=== PATIENT | female | born 1965 | race Caucasian/White ===

== ENCOUNTER 2018-04-17 17:25 | Emergency (ER) | payer MEDICARE, MEDICAID ==
[~2018-04-17] VITALS: Ht 160 cm; Wt 120.0 kg
[~2018-04-17 17:25] MED LIST: CLON-528 PO; DOXE50CA4 PO; FERR325T28 PO; LAMO100T89 PO; MIRT15TA PO; PANT-47 PO; SIMV20TA5 PO
[2018-04-17 17:29] VITALS: BP 167/88
--- NOTE | 2018-04-17 19:25 | NUR ---
NO RESPONSE FROM LOBBY AFTER 3 ATTEMPTS TO ROOM. CALL PLACED TO NUMBER ON FILE. MESSAGE LEFT EXPRESSING CONCERN FOR PATIENT WELL BEING AND TO ENCOURAGE HER TO RETURN FOR EVAL. DR. CARL INFORMED.
== END 2018-04-17 19:27 | disposition left against medical advice (07) ==
LOC: ER 17:26
DX: I10 Essential (primary) hypertension (principal); R07.89 Other chest pain; Z53.21 Procedure and treatment not carried out due to patient leaving prior to being seen by health care provider
CPT/HCPCS: 93005

== ENCOUNTER 2018-05-29 08:49 | Emergency (ER) | payer MEDICARE, MEDICAID ==
[~2018-05-29] VITALS: Ht 160 cm; Wt 119.8 kg
[2018-05-29 09:00] VITALS: BP 194/101
[2018-05-29] MEDS ORDERED: TRAM50TA2 PO (09:08)
[2018-05-29] MEDS ORDERED: ketorolac trometh inj. 60 MG/2 ML VIAL IM ONE (09:10)
== END 2018-05-29 09:36 | disposition home or self-care (01) ==
LOC: ER 08:50
DX: S20.212A Contusion of left front wall of thorax, initial encounter (principal); E78.00 Pure hypercholesterolemia, unspecified; I10 Essential (primary) hypertension; G89.29 Other chronic pain; Z95.5 Presence of coronary angioplasty implant and graft; Z90.49 Acquired absence of other specified parts of digestive tract; Z98.84 Bariatric surgery status; Z88.0 Allergy status to penicillin; Z88.6 Allergy status to analgesic agent; Z79.899 Other long term (current) drug therapy; W01.198A Fall on same level from slipping, tripping and stumbling with subsequent striking against other object, initial encounter; Y93.89 Activity, other specified; Y92.89 Other specified places as the place of occurrence of the external cause; Y99.9 Unspecified external cause status
CPT/HCPCS: 96372; 99283; J1885

== ENCOUNTER 2019-01-29 10:59 | Emergency (ER) | payer MEDICARE, MEDICAID ==
[~2019-01-29] VITALS: Ht 160 cm; Wt 119.0 kg
[~2019-01-29 10:59] MED LIST changes: +LAMO100T PO; -LAMO100T89 PO; +SIMV-42 PO; -SIMV20TA5 PO
[2019-01-29] MEDS ORDERED: nitroGLYCERIN 0.4mg SUBLingual tab SL PRN (11:20)
[2019-01-29 11:52] LABS: BASOPHILS % (AUTO) 0.5 % (0-1); EOSINOPHILS % (AUTO) 0 % (0-6); HEMATOCRIT 37.1 % (35.0-45.0); HEMOGLOBIN 12.7 g/dl (12.0-16.0); LYMPHOCYTES # (AUTO) 1.4 X10'3 (1.1-4.8); LYMPHOCYTES % (AUTO) 24.6 % (21-51); MEAN CORPUSCULAR HEMOGLOBIN 32.9 PG (27.0-31.0); MEAN CORPUSCULAR HGB CONC 34.1 g/dL (33.0-36.5); MEAN CORPUSCULAR VOLUME 96.6 FL (78-98); MEAN PLATELET VOLUME 7.5 FL (7.4-10.4); MONOCYTES # (AUTO) 0.5 X10'3 (0-0.9); MONOCYTES % (AUTO) 7.9 % (2-12); NEUTROPHILS # (AUTO) 3.9 X10'3 (1.8-7.7); PLATELET COUNT 205 X10'3 (140-440); RED BLOOD COUNT 3.84 X10'6 (4.20-5.60); RED CELL DISTRIBUTION WIDTH 13.4 % (11.5-14.5); WHITE BLOOD COUNT 5.8 X10'3 (4.5-11.0)
[2019-01-29 12:03] LABS: ALANINE AMINOTRANSFERASE 117 U/L (12-78); ALBUMIN 3.4 G/DL (3.4-5.0); ALBUMIN/GLOBULIN RATIO 1.2 (1.1-1.5); ALKALINE PHOSPHATASE 174 IU/L (46-116); ANION GAP 9 (8-16); ASPARTATE AMINO TRANSFERASE 155 U/L (10-37); BILIRUBIN,TOTAL 0.3 MG/DL (0.1-1.0); BLOOD UREA NITROGEN 9 MG/DL (7-18); BUN/CREATININE RATIO 11.7 (6.6-38.0); CALCIUM 8.9 MG/DL (8.5-10.1); CHLORIDE 103 MMOL/L (99-107); CREATININE 0.77 MG/DL (0.40-0.90); GLUCOSE 123 MG/DL (70-104); POTASSIUM 4.3 MMOL/L (3.5-5.1); SODIUM 139 MMOL/L (135-145); TOTAL PROTEIN 6.3 G/DL (6.4-8.2); eGFR 78 ML/MIN
[2019-01-29 14:23] VITALS: BP 169/94
== END 2019-01-29 14:25 | disposition home or self-care (01) ==
LOC: ER 11:00
DX: R07.89 Other chest pain (principal); E66.01 Morbid (severe) obesity due to excess calories; I25.10 Atherosclerotic heart disease of native coronary artery without angina pectoris; E78.00 Pure hypercholesterolemia, unspecified; I10 Essential (primary) hypertension; G89.29 Other chronic pain; Z95.5 Presence of coronary angioplasty implant and graft; Z90.49 Acquired absence of other specified parts of digestive tract; Z98.890 Other specified postprocedural states; Z98.84 Bariatric surgery status; Z88.0 Allergy status to penicillin; Z88.6 Allergy status to analgesic agent; Z79.899 Other long term (current) drug therapy
CPT/HCPCS: 36415; 71045; 80053; 83880; 84484; 85025; 85610; 93005; 99284

== ENCOUNTER 2020-09-28 14:18 | Emergency (ER) | payer MEDICARE, MEDICAID ==
[~2020-09-28 14:18] MED LIST changes: -CLON-528 PO; -DOXE50CA4 PO; -FERR325T28 PO; +FLUO40CA PO; +GABA300C PO; +LEVO500T89 PO; -MIRT15TA PO; +NALT50TA PO; +TRAZ-251 PO
== END 2020-09-28 14:57 | disposition left against medical advice (07) ==
LOC: ER 14:18
DX: F41.9 Anxiety disorder, unspecified (principal); Z53.21 Procedure and treatment not carried out due to patient leaving prior to being seen by health care provider

== ENCOUNTER 2020-10-02 14:38 | Emergency (ER) | payer MEDICARE, MEDICAID ==
[~2020-10-02] VITALS: Ht 160 cm; Wt 122.0 kg
[2020-10-02 15:21] LABS: BASOPHILS % (AUTO) 0.4 % (0-1); EOSINOPHILS # (AUTO) 0.1 X10'3 (0-0.9); HEMATOCRIT 45.1 % (35.0-45.0); HEMOGLOBIN 14.1 g/dl (12.0-16.0); LYMPHOCYTES # (AUTO) 1.7 X10'3 (1.1-4.8); LYMPHOCYTES % (AUTO) 22.7 % (21-51); MEAN CORPUSCULAR HEMOGLOBIN 29.9 PG (27.0-31.0); MEAN CORPUSCULAR HGB CONC 31.2 g/dL (33.0-36.5); MEAN CORPUSCULAR VOLUME 95.8 FL (78-98); MONOCYTES # (AUTO) 0.6 X10'3 (0-0.9); MONOCYTES % (AUTO) 7.2 % (2-12); NEUTROPHILS # (AUTO) 5.3 X10'3 (1.8-7.7); NEUTROPHILS % (AUTO) 68.7 % (42-75); PLATELET COUNT 341 X10'3 (140-440); RED BLOOD COUNT 4.71 X10'6 (4.20-5.60); RED CELL DISTRIBUTION WIDTH 14.7 % (11.5-14.5); WHITE BLOOD COUNT 7.7 X10'3 (4.5-11.0)
[2020-10-02 15:42] LABS: ALANINE AMINOTRANSFERASE 45 U/L (12-78); ALBUMIN/GLOBULIN RATIO 1.2 (1.1-1.5); ALKALINE PHOSPHATASE 194 IU/L (46-116); ANION GAP 10 (8-16); ASPARTATE AMINO TRANSFERASE 32 U/L (10-37); BILIRUBIN,TOTAL 0.3 MG/DL (0.1-1.0); BLOOD UREA NITROGEN 13 MG/DL (7-18); BUN/CREATININE RATIO 16.5 (6.6-38.0); CALCIUM 9.5 MG/DL (8.5-10.1); CHLORIDE 103 MMOL/L (99-107); CREATININE 0.79 MG/DL (0.40-0.90); GLUCOSE 144 MG/DL (70-104); POTASSIUM 4.3 MMOL/L (3.5-5.1); SODIUM 138 MMOL/L (135-145); TOTAL CARBON DIOXIDE 25.2 MMOL/L (24-32); TOTAL PROTEIN 7.3 G/DL (6.4-8.2); eGFR 75 ML/MIN
[2020-10-02] MEDS ORDERED: diazepam inj 5 MG/ML inj. IM ONE (20:25)
[2020-10-02] MEDS ORDERED: oxyCODONE/APAP 5-325mg tablet PO ONE (21:15)
[2020-10-02] MEDS ORDERED: ketorolac trometh. 30mg/ml inj. IM ONE (21:15)
[2020-10-02 21:47] LABS: CREATINE KINASE 50 U/L (26-192)
[2020-10-02] MEDS ORDERED: morphine 10mg/ml inj. IM ONE (22:10)
[2020-10-02] MEDS ORDERED: GABA-530 PO (22:28)
--- NOTE | 2020-10-02 22:51 | NUR ---
pt states felt nauseous after valium and morphine has made nausea a little worse.
--- NOTE | 2020-10-02 22:55 | NUR ---
pt walked 3 steps from bed before right leg cramping began. pt states left leg hurt as well but not as bad.
[2020-10-02] MEDS ORDERED: magnesium oxide 400mg tablet PO ONE (23:00)
[2020-10-02 23:31] LABS: C-REACTIVE PROTEIN 1.62 MG/DL (0.0-0.5); MAGNESIUM 2.1 MG/DL (1.5-2.4)
[2020-10-03 00:12] LABS: CLARITY,URINE CLEAR (Clear); COLOR,URINE YELLOW (Yellow); GLUCOSE, URINE NEGATIVE (Neg); KETONES,URINE NEGATIVE (Neg); LEUKOCYTE ESTERASE ,URINE NEGATIVE (Neg); NITRITES, URINE NEGATIVE (Neg); OCCULT BLOOD,URINE NEGATIVE (Neg); PROTEIN,URINE NEGATIVE (Neg); UROBILINOGEN,URINE 0.2 E.U/dL (0.2-1.0)
[2020-10-03 00:14] LABS: UA COLLECTION TYPE URINAL
[2020-10-03 00:26] LABS: URINE AMPHETAMINE SCREEN NEGATIVE (Neg); URINE BARBITUATE SCREEN NEGATIVE (Neg); URINE BENZODIAZEPINES SCREEN NEGATIVE (Neg); URINE CANNABINOID SCREEN NEGATIVE (Neg); URINE COCAINE SCREEN NEGATIVE (Neg); URINE METHADONE SCREEN NEGATIVE (Neg); URINE OPIATE SCREEN POSITIVE (Neg); URINE PHENCYCLIDINE SCREEN NEGATIVE (Neg)
--- NOTE | 2020-10-03 05:33 | NUR ---
pt resting on right side watching [employer]. states pain went away but spasms in right leg came back. states right leg worse than left. states 9/10 pain currently. md seals aware.
[2020-10-03] MEDS ORDERED: thiamine 100mg tablet PO ONE (06:50)
[2020-10-03] MEDS ORDERED: folic acid 1mg tablet PO ONE (06:50)
[2020-10-03 07:11] VITALS: BP 145/73
== END 2020-10-03 07:40 | disposition home or self-care (01) ==
LOC: ER 14:38
DX: R55 Syncope and collapse (principal); R00.1 Bradycardia, unspecified; R26.89 Other abnormalities of gait and mobility; M79.605 Pain in left leg; M79.604 Pain in right leg; I10 Essential (primary) hypertension; E66.01 Morbid (severe) obesity due to excess calories; Z68.42 Body mass index [BMI] 45.0-49.9, adult
CPT/HCPCS: 36415; 73564; 80053; 80305; 81003; 82550; 83735; 85025; 85651; 86140; 93970; 96372; 99285; J1885; J2270; J3360

== ENCOUNTER 2021-07-27 04:22 | Inpatient (IN) | payer MEDICARE, MEDICAID ==
[~2021-07-27] VITALS: Ht 162.6 cm; Wt 120.5 kg
[~2021-07-27 04:22] MED LIST changes: +GABA-530 PO; -LEVO500T89 PO; +LEVO500T90 PO
[2021-07-27] MEDS ORDERED: naproxen 500mg tablet PO ONE (05:45)
[2021-07-27] MEDS ORDERED: HYDROcodone/acetaminophen 10/325mg tab PO ONE (05:45)
[2021-07-27] MEDS ORDERED: morphine 4 MG/ML inj SYRINge IV ONE (05:50)
[2021-07-27 06:47] LABS: BASOPHILS # (AUTO) 0.1 X10'3 (0-0.2); BASOPHILS % (AUTO) 0.6 % (0-1); EOSINOPHILS % (AUTO) 0.1 % (0-6); HEMATOCRIT 36.5 % (35.0-45.0); HEMOGLOBIN 12.2 g/dl (12.0-16.0); LYMPHOCYTES # (AUTO) 2.2 X10'3 (1.1-4.8); LYMPHOCYTES % (AUTO) 22.7 % (21-51); MEAN CORPUSCULAR HEMOGLOBIN 30.2 PG (27.0-31.0); MEAN CORPUSCULAR HGB CONC 33.5 g/dL (33.0-36.5); MEAN CORPUSCULAR VOLUME 90.3 FL (78-98); MEAN PLATELET VOLUME 7.6 FL (7.4-10.4); MONOCYTES # (AUTO) 0.7 X10'3 (0-0.9); MONOCYTES % (AUTO) 7.6 % (2-12); NEUTROPHILS # (AUTO) 6.6 X10'3 (1.8-7.7); PLATELET COUNT 402 X10'3 (140-440); RED BLOOD COUNT 4.04 X10'6 (4.20-5.60); RED CELL DISTRIBUTION WIDTH 14.7 % (11.5-14.5); WHITE BLOOD COUNT 9.6 X10'3 (4.5-11.0)
[2021-07-27 06:57] LABS: APTT 22 SECONDS (22-32)
[2021-07-27 07:02] LABS: ALANINE AMINOTRANSFERASE 25 U/L (12-78); ALBUMIN 3.8 G/DL (3.4-5.0); ALBUMIN/GLOBULIN RATIO 1.2 (1.1-1.5); ALKALINE PHOSPHATASE 192 IU/L (46-116); ANION GAP 15 (8-16); ASPARTATE AMINO TRANSFERASE 23 U/L (10-37); BILIRUBIN,TOTAL 0.3 MG/DL (0.1-1.0); BLOOD UREA NITROGEN 8 MG/DL (7-18); BUN/CREATININE RATIO 11.4 (6.6-38.0); CHLORIDE 104 MMOL/L (99-107); GLUCOSE 124 MG/DL (70-104); POTASSIUM 4.2 MMOL/L (3.5-5.1); SODIUM 139 MMOL/L (135-145); TOTAL CARBON DIOXIDE 20.5 MMOL/L (24-32); TOTAL PROTEIN 6.9 G/DL (6.4-8.2); eGFR 86 ML/MIN
[2021-07-27 07:10] LABS: ETHANOL 0.047 GM/DL (0.0-0.010); LIPASE 57 U/L (73-393); MAGNESIUM 2.1 MG/DL (1.5-2.4)
[2021-07-27] MEDS ORDERED: acetaminophen 325mg tablet PO PRN (07:45)
[2021-07-27] MEDS ORDERED: magnesium hydroxide 30ml (MOM) UD suspension PO PRN (07:45)
[2021-07-27] MEDS ORDERED: HYDROcodone/acetaminophen 5mg/325mg tablet PO PRN (07:45)
[2021-07-27] MEDS ORDERED: fentaNYL/PF 50MCG/1 ML 2ML syringe IV ONE (07:45)
[2021-07-27] MEDS ORDERED: morphine 2 MG/ML inj. syringe IV PRN ×2 (07:45)
[2021-07-27] MEDS ORDERED: ondansetron/PF 4mg/2ml inj IV ONE (07:45)
[2021-07-27] MEDS ORDERED: ondansetron/PF 4mg/2ml inj IV PRN (07:45)
[2021-07-27] MEDS ORDERED: mag hydrox/Alum hydrox/simeth 30ml oral suspension PO PRN (07:45)
[2021-07-27] MEDS: docusate sod 100mg capsule PO SCH ×2 (08:00→20:54)
[2021-07-27] MEDS: dextrose 5%-1/2 normal saline 1,000 ML IV SCH ×3 (08:06→23:53)
[2021-07-27 08:40] LABS: CLARITY,URINE CLOUDY (Clear); COLOR,URINE YELLOW (Yellow); GLUCOSE, URINE NEGATIVE (Neg); KETONES,URINE NEGATIVE (Neg); LEUKOCYTE ESTERASE ,URINE NEGATIVE (Neg); NITRITES, URINE NEGATIVE (Neg); OCCULT BLOOD,URINE NEGATIVE (Neg); PROTEIN,URINE NEGATIVE (Neg); UROBILINOGEN,URINE 0.2 E.U/dL (0.2-1.0)
[2021-07-27 08:41] LABS: UA COLLECTION TYPE CLN CATCH MIDSTREAM
[2021-07-27 08:46] LABS: HYALINE CASTS 0-3 /LPF (NEGATIVE); SQUAMOUS EPITHELIAL CELL,UR FEW /LPF (FEW)
[2021-07-27 08:47] LABS: BACTERIA,URINE 3+ /HPF (Neg); RBC,URINE 0-2 /HPF (0-2); WBC,URINE 0-4 /HPF (0-4)
[2021-07-27] MEDS: HYDROmorphone inj. 0.5 MG/0.5 ML DISP.SYRIN IV PRN ×5 (13:23→23:53)
[2021-07-27 13:29] VITALS: BP 139/51
[2021-07-27] MEDS ORDERED: ATEN50TA2 PO (13:39)
[2021-07-27] MEDS ORDERED: TOPI50TA24 PO (13:39)
[2021-07-27 18:00] VITALS: BP 157/60
[2021-07-27 18:24] VITALS: BP 170/78
[2021-07-27 22:00] VITALS: BP 134/43
[2021-07-28 06:00] VITALS: BP 163/76
--- NOTE | 2021-07-28 06:32 | NUR ---
Problems reprioritized. Patient report given, questions answered & plan of care reviewed with CLARE HENRY.
--- NOTE | 2021-07-28 06:52 | NUR ---
Patient in room ORTHO 4009C. I have received report from CARL VELASQUEZ and had the opportunity to ask questions and assume patient care.
[2021-07-28] MEDS: HYDROcodone/acetaminophen 10/325mg tab PO PRN (07:25)
[2021-07-28 07:40] LABS: BASOPHILS % (AUTO) 0.7 % (0-1); EOSINOPHILS % (AUTO) 0.6 % (0-6); HEMATOCRIT 35.2 % (35.0-45.0); HEMOGLOBIN 11.3 g/dl (12.0-16.0); LYMPHOCYTES # (AUTO) 1.6 X10'3 (1.1-4.8); LYMPHOCYTES % (AUTO) 25.3 % (21-51); MEAN CORPUSCULAR HEMOGLOBIN 29.4 PG (27.0-31.0); MEAN CORPUSCULAR HGB CONC 32.2 g/dL (33.0-36.5); MEAN CORPUSCULAR VOLUME 91.4 FL (78-98); MEAN PLATELET VOLUME 7.5 FL (7.4-10.4); MONOCYTES # (AUTO) 0.6 X10'3 (0-0.9); MONOCYTES % (AUTO) 10.1 % (2-12); NEUTROPHILS # (AUTO) 3.9 X10'3 (1.8-7.7); NEUTROPHILS % (AUTO) 63.3 % (42-75); PLATELET COUNT 266 X10'3 (140-440); RED BLOOD COUNT 3.85 X10'6 (4.20-5.60); RED CELL DISTRIBUTION WIDTH 14.9 % (11.5-14.5); WHITE BLOOD COUNT 6.2 X10'3 (4.5-11.0)
[2021-07-28 07:43] LABS: ANION GAP 10 (8-16); BLOOD UREA NITROGEN 7 MG/DL (7-18); BUN/CREATININE RATIO 11.3 (6.6-38.0); CALCIUM 8.6 MG/DL (8.5-10.1); CHLORIDE 105 MMOL/L (99-107); CREATININE 0.62 MG/DL (0.40-0.90); GLUCOSE 126 MG/DL (70-104); POTASSIUM 3.8 MMOL/L (3.5-5.1); SODIUM 140 MMOL/L (135-145); eGFR > 90 ML/MIN
[2021-07-28] MEDS: multivitamins, therapeutics tablet PO SCH (08:00)
[2021-07-28] MEDS: docusate sod 100mg capsule PO SCH ×2 (08:00→19:54)
[2021-07-28 10:00] VITALS: BP 152/59
[2021-07-28] MEDS: HYDROmorphone inj. 0.5 MG/0.5 ML DISP.SYRIN IV PRN ×4 (11:13→19:54)
[2021-07-28 14:00] VITALS: BP 157/68
[2021-07-28] MEDS: dextrose 5%-1/2 normal saline 1,000 ML IV SCH ×2 (14:34→23:21)
[2021-07-28 18:00] VITALS: BP 169/78
--- NOTE | 2021-07-28 18:56 | NUR ---
Patient in room ORTHO 4009. I have received report from CLARE HENRY and had the opportunity to ask questions and assume patient care.
--- NOTE | 2021-07-28 19:42 | NUR ---
Problems reprioritized. Patient report given, questions answered & plan of care reviewed with CARL VELASQUEZ.
[2021-07-28] MEDS: acetaminophen 325mg tablet PO PRN (21:24)
[2021-07-28] MEDS: LORazepam 1 MG tablet PO PRN (21:24)
[2021-07-28 22:00] VITALS: BP 156/59
[2021-07-29 05:00] VITALS: BP 150/58
[2021-07-29 05:00] LABS: ALBUMIN 2.8 G/DL (3.4-5.0); ANION GAP 11 (8-16); BLOOD UREA NITROGEN 3 MG/DL (7-18); BUN/CREATININE RATIO 5.9 (6.6-38.0); CALCIUM 8.5 MG/DL (8.5-10.1); CHLORIDE 106 MMOL/L (99-107); CREATININE 0.51 MG/DL (0.40-0.90); GLUCOSE 146 MG/DL (70-104); POTASSIUM 3.5 MMOL/L (3.5-5.1); SODIUM 143 MMOL/L (135-145); TOTAL CARBON DIOXIDE 26.2 MMOL/L (24-32); eGFR > 90 ML/MIN
[2021-07-29] MEDS: HYDROmorphone inj. 0.5 MG/0.5 ML DISP.SYRIN IV PRN ×4 (05:32→17:26)
[2021-07-29 06:44] LABS: BASOPHILS % (AUTO) 0.5 % (0-1); EOSINOPHILS # (AUTO) 0.1 X10'3 (0-0.9); EOSINOPHILS % (AUTO) 1.3 % (0-6); HEMATOCRIT 35.9 % (35.0-45.0); HEMOGLOBIN 11.9 g/dl (12.0-16.0); LYMPHOCYTES # (AUTO) 1.1 X10'3 (1.1-4.8); LYMPHOCYTES % (AUTO) 24.8 % (21-51); MEAN CORPUSCULAR HEMOGLOBIN 30.2 PG (27.0-31.0); MEAN CORPUSCULAR HGB CONC 33.1 g/dL (33.0-36.5); MEAN CORPUSCULAR VOLUME 91.4 FL (78-98); MEAN PLATELET VOLUME 7.4 FL (7.4-10.4); MONOCYTES # (AUTO) 0.4 X10'3 (0-0.9); MONOCYTES % (AUTO) 9.8 % (2-12); NEUTROPHILS # (AUTO) 2.8 X10'3 (1.8-7.7); NEUTROPHILS % (AUTO) 63.6 % (42-75); PLATELET COUNT 282 X10'3 (140-440); RED BLOOD COUNT 3.93 X10'6 (4.20-5.60); RED CELL DISTRIBUTION WIDTH 14.4 % (11.5-14.5); WHITE BLOOD COUNT 4.4 X10'3 (4.5-11.0)
--- NOTE | 2021-07-29 08:24 | NUR ---
SPOKE WITH DOCTOR HENLEY AND WAS INFORMED PATIENT WILL NOT BE HAVING SURGERY TODAY AND TO GO AHEAD AND GIVE HER FOOD.
[2021-07-29] MEDS: multivitamins, therapeutics tablet PO SCH (08:27)
[2021-07-29] MEDS: docusate sod 100mg capsule PO SCH ×2 (08:27→20:50)
[2021-07-29] MEDS: dextrose 5%-1/2 normal saline 1,000 ML IV SCH ×2 (08:47→19:46)
[2021-07-29 10:00] VITALS: BP 144/58
[2021-07-29] MEDS: LORazepam 1 MG tablet PO PRN (11:14)
--- NOTE | 2021-07-29 12:20 | NUR ---
Problems reprioritized. Patient report given, questions answered & plan of care reviewed with CHARLINE HENRY.
--- NOTE | 2021-07-29 12:27 | NUR ---
REPORT RECEIVED FROM CARL VELASQUEZ I AM IN AGREEANCE WITH ASSESSMENT
[2021-07-29] MEDS: gabapentin 300mg capsule PO SCH ×2 (13:00→20:50)
--- NOTE | 2021-07-29 13:40 | NUR ---
PAGER ID: [phone] MESSAGE: [id number] carter systolic blood pressure is 173, no prns. thanks aleida [phone]
[2021-07-29] MEDS ORDERED: hydrALAZINE 20mg/ml inj. IV PRN (13:45)
[2021-07-29 15:00] VITALS: BP 161/77
--- NOTE | 2021-07-29 16:10 | NUR ---
orthodontic lab technician placed short arm splint
--- NOTE | 2021-07-29 17:12 | NUR ---
PAGER ID: [phone] MESSAGE: [email or web address], Chucky patients blood pressure after hydralazine is 175 systolic. do you want me to give vasotec? aleida [phone]
[2021-07-29] MEDS ORDERED: atenolol 50mg tablet PO ONE (17:15)
--- NOTE | 2021-07-29 18:43 | NUR ---
Report given to CARL Quintero
[2021-07-29] MEDS: lamoTRIgine 100mg tablet PO SCH (20:49)
[2021-07-29] MEDS: atorvastatin 10mg tablet PO SCH (20:49)
[2021-07-29] MEDS: HYDROcodone/acetaminophen 10/325mg tab PO PRN (20:50)
[2021-07-29] MEDS: traZODone 50mg tablet PO SCH (20:51)
[2021-07-30] MEDS: dextrose 5%-1/2 normal saline 1,000 ML IV SCH ×2 (05:53→16:51)
[2021-07-30 06:38] LABS: BASOPHILS % (AUTO) 0.4 % (0-1); EOSINOPHILS # (AUTO) 0.1 X10'3 (0-0.9); EOSINOPHILS % (AUTO) 1.5 % (0-6); HEMATOCRIT 35.2 % (35.0-45.0); HEMOGLOBIN 11.4 g/dl (12.0-16.0); LYMPHOCYTES # (AUTO) 1.6 X10'3 (1.1-4.8); LYMPHOCYTES % (AUTO) 28.8 % (21-51); MEAN CORPUSCULAR HEMOGLOBIN 29.8 PG (27.0-31.0); MEAN CORPUSCULAR HGB CONC 32.3 g/dL (33.0-36.5); MEAN CORPUSCULAR VOLUME 92.3 FL (78-98); MEAN PLATELET VOLUME 7.6 FL (7.4-10.4); MONOCYTES # (AUTO) 0.5 X10'3 (0-0.9); MONOCYTES % (AUTO) 8.9 % (2-12); NEUTROPHILS # (AUTO) 3.4 X10'3 (1.8-7.7); NEUTROPHILS % (AUTO) 60.4 % (42-75); PLATELET COUNT 306 X10'3 (140-440); RED BLOOD COUNT 3.82 X10'6 (4.20-5.60); RED CELL DISTRIBUTION WIDTH 14.6 % (11.5-14.5); WHITE BLOOD COUNT 5.6 X10'3 (4.5-11.0)
[2021-07-30 06:42] LABS: ALBUMIN 2.6 G/DL (3.4-5.0); ANION GAP 9 (8-16); BLOOD UREA NITROGEN 5 MG/DL (7-18); BUN/CREATININE RATIO 9.4 (6.6-38.0); CALCIUM 8.5 MG/DL (8.5-10.1); CHLORIDE 106 MMOL/L (99-107); CREATININE 0.53 MG/DL (0.40-0.90); GLUCOSE 128 MG/DL (70-104); POTASSIUM 3.5 MMOL/L (3.5-5.1); SODIUM 143 MMOL/L (135-145); TOTAL CARBON DIOXIDE 27.7 MMOL/L (24-32); eGFR > 90 ML/MIN
[2021-07-30] MEDS: docusate sod 100mg capsule PO SCH ×2 (08:49→20:14)
[2021-07-30] MEDS: lamoTRIgine 100mg tablet PO SCH ×2 (08:50→20:15)
[2021-07-30] MEDS: FLUoxetine 20mg capsule PO SCH (08:51)
[2021-07-30] MEDS: multivitamins, therapeutics tablet PO SCH (08:51)
[2021-07-30] MEDS: topiramate 25mg tablet PO SCH (08:51)
[2021-07-30] MEDS: atenolol 50mg tablet PO SCH (08:52)
[2021-07-30] MEDS: gabapentin 300mg capsule PO SCH ×3 (08:52→20:14)
[2021-07-30] MEDS: pantoprazole 40mg Tablet.DR PO SCH (08:52)
[2021-07-30] MEDS: HYDROmorphone inj. 0.5 MG/0.5 ML DISP.SYRIN IV PRN ×3 (09:01→20:30)
[2021-07-30 10:00] VITALS: BP 142/54
[2021-07-30] MEDS: acetaminophen 325mg tablet PO PRN (16:56)
[2021-07-30 18:00] VITALS: BP 138/51
--- NOTE | 2021-07-30 18:34 | NUR ---
Patient in room ORTHO 4009C. I have received report from Yamilet Montero RN and had the opportunity to ask questions and assume patient care.
[2021-07-30] MEDS: atorvastatin 10mg tablet PO SCH (20:14)
[2021-07-30] MEDS: traZODone 50mg tablet PO SCH (20:15)
[2021-07-30 22:00] VITALS: BP 91/41
[2021-07-30] MEDS: HYDROcodone/acetaminophen 10/325mg tab PO PRN (23:49)
[2021-07-31] VITALS (20 sets, daily range): BP systolic 106–171; BP diastolic 48–88
--- NOTE | 2021-07-31 03:38 | NUR ---
Agree with USER SUPPORT SPECIALIST Eliza assessment, pt also has a short arm splint cast to R arm with sling and fingers tingle a little.
[2021-07-31] MEDS: dextrose 5%-1/2 normal saline 1,000 ML IV SCH ×3 (04:26→21:45)
[2021-07-31] MEDS: HYDROcodone/acetaminophen 10/325mg tab PO PRN ×3 (04:30→22:23)
--- NOTE | 2021-07-31 06:11 | NUR ---
Patient in room ORTHO 4009. I have received report from Eliza MARTIN and had the opportunity to ask questions and assume patient care.
[2021-07-31 06:19] LABS: BASOPHILS % (AUTO) 0.4 % (0-1); EOSINOPHILS # (AUTO) 0.1 X10'3 (0-0.9); HEMATOCRIT 36.3 % (35.0-45.0); HEMOGLOBIN 11.6 g/dl (12.0-16.0); MEAN CORPUSCULAR HEMOGLOBIN 29.3 PG (27.0-31.0); MEAN CORPUSCULAR HGB CONC 31.8 g/dL (33.0-36.5); MEAN PLATELET VOLUME 7.6 FL (7.4-10.4); MONOCYTES # (AUTO) 0.5 X10'3 (0-0.9); NEUTROPHILS # (AUTO) 3.2 X10'3 (1.8-7.7); NEUTROPHILS % (AUTO) 55.6 % (42-75); PLATELET COUNT 353 X10'3 (140-440); RED BLOOD COUNT 3.94 X10'6 (4.20-5.60); RED CELL DISTRIBUTION WIDTH 14.9 % (11.5-14.5); WHITE BLOOD COUNT 5.8 X10'3 (4.5-11.0)
[2021-07-31 06:28] LABS: ALBUMIN 2.8 G/DL (3.4-5.0); ANION GAP 12 (8-16); BLOOD UREA NITROGEN 5 MG/DL (7-18); BUN/CREATININE RATIO 7.5 (6.6-38.0); CALCIUM 8.5 MG/DL (8.5-10.1); CHLORIDE 109 MMOL/L (99-107); CREATININE 0.67 MG/DL (0.40-0.90); GLUCOSE 112 MG/DL (70-104); POTASSIUM 3.5 MMOL/L (3.5-5.1); SODIUM 146 MMOL/L (135-145); TOTAL CARBON DIOXIDE 25.3 MMOL/L (24-32); eGFR > 90 ML/MIN
[2021-07-31] MEDS: atenolol 50mg tablet PO SCH (08:00)
--- NOTE | 2021-07-31 09:19 | NUR ---
Initial: Pt admit for elbow fracture secondary to mechanical fall. Pt currently NPO, pending surgery per EMR. Prior pt on a heart healthy diet with fluctuating PO intake, overall averaging 44% PO intake not meeting estimated nutrient needs. Recommend liberalizing to regular diet if PO intake does not improve post-op. Pt currently receiving D5NS at 100 mL/hr providing 408 kcal/day. Noted pt with h/o EtOH and gastric bypass, currently receiving routine MVI. Pt would benefit from additional Thiamine, Folic acid, and Vitamin B12 supplementation with physician approval. [facility] 07/29. Will continue to follow closely. Recommendations: 1) Liberalize to regular diet if PO intake does not improve 2) Monitor need for ONS post-op 3) Continue routine MVI; consider Thiamine, Folic acid, and Vitamin B12 given EtOH and gastric bypass hx 4) Routine bowel care 5) Weekly scaled weights Addendum: 07/31/21 at [address] Amended: Links added.
[2021-07-31] MEDS: topiramate 25mg tablet PO SCH (09:22)
[2021-07-31] MEDS: lamoTRIgine 100mg tablet PO SCH ×2 (09:22→20:19)
[2021-07-31] MEDS: FLUoxetine 20mg capsule PO SCH (09:23)
[2021-07-31] MEDS: pantoprazole 40mg Tablet.DR PO SCH (09:23)
[2021-07-31] MEDS: multivitamins, therapeutics tablet PO SCH (09:24)
[2021-07-31] MEDS: gabapentin 300mg capsule PO SCH ×3 (09:24→20:19)
[2021-07-31] MEDS: docusate sod 100mg capsule PO SCH ×2 (09:24→20:18)
[2021-07-31] MEDS ORDERED: proCHLORperazine 10 MG/2 ml inj IV PRN (11:15)
[2021-07-31] MEDS ORDERED: meperidine/PF 25mg/ml syringe IV PRN ×3 (11:15)
[2021-07-31] MEDS ORDERED: ondansetron/PF 4mg/2ml inj IV PRN (11:15)
[2021-07-31] MEDS ORDERED: ringers solution, lacted 1,000 ML IV SCH (11:15)
[2021-07-31] MEDS ORDERED: morphine 4 MG/ML inj SYRINge IV PRN (11:15)
[2021-07-31] MEDS ORDERED: morphine 2 MG/ML inj. syringe IV PRN (11:15)
[2021-07-31] MEDS ORDERED: ceFAZolin 1000mg inj ONE ×3 (11:21→13:02)
--- NOTE | 2021-07-31 11:55 | NUR ---
Patient picked up before I could finish the pre op checklist. Addendum: 07/31/21 at 1437 by Mariama Lovelace RN Amended: Links added.
[2021-07-31] MEDS ORDERED: desflurane 240ml liquid inh. IH ONE (12:17)
[2021-07-31] MEDS ORDERED: dexamethasone sod phosphate 10mg/ml inj ONE (12:17)
[2021-07-31] MEDS ORDERED: fentaNYL/PF 50MCG/1 ML 2ML syringe ONE (12:21)
[2021-07-31] MEDS ORDERED: MIDAZolam 1 MG/ML 5ML VIAL ONE (12:22)
[2021-07-31] MEDS ORDERED: BUPIVAcaine 0.5% inj/PF 30 ML ONE ×2 (12:22→14:15)
[2021-07-31] MEDS ORDERED: LIDOcaine 1%/PF 5ML 10 MG/ML VIAL ONE (12:41)
[2021-07-31] MEDS ORDERED: rocuronium 10mg/ml inj IV ONE (12:41)
[2021-07-31] MEDS ORDERED: propofol inj 20 ML IV ONE (12:41)
[2021-07-31] MEDS ORDERED: BUPIVAcaine 0.5% inj/PF 30 ml vial IJ ONE (14:17)
[2021-07-31] MEDS ORDERED: neostigmine methylsulfate 1 MG/ML 10ml vial ONE (14:30)
[2021-07-31] MEDS ORDERED: glycopyrrolate 0.2mg/ml inj ONE (14:30)
--- NOTE | 2021-07-31 14:37 | NUR ---
Received from OR via BED , accompanied by Anesthesiologist and report given by NICHOLAS Anesthesiolgi. PATIENT WAKING UP, DENIES PAIN, V/S WNL, SCD ON , PICC ON LUE, SHOULDER DRESSING AND IMMOBILIZER TO RIGHT SIDE CDI, RIGHT RADIAL PULSE 2+ PALPABLE, PINK RIGHT HAND AND APPLIED COLD POWDER PACK. Addendum: 07/31/21 at 1500 by Radha Lan RN, RN Amended: Links added.
--- NOTE | 2021-07-31 15:47 | NUR ---
Patient in room ORTHO 4009c. I have received report from Fredy HENRY, in Recovery and had the opportunity to ask questions and assume patient care.
--- NOTE | 2021-07-31 18:00 | NUR ---
Patient in room ORTHO 4009. I have received report from CARL Leslie and had the opportunity to ask questions and assume patient care.
--- NOTE | 2021-07-31 18:30 | NUR ---
Problems reprioritized. Patient report given, questions answered & plan of care reviewed with Lissett HENRY.
[2021-07-31] MEDS: HYDROmorphone inj. 0.5 MG/0.5 ML DISP.SYRIN IV PRN (19:02)
[2021-07-31] MEDS: atorvastatin 10mg tablet PO SCH (20:18)
[2021-07-31] MEDS: traZODone 50mg tablet PO SCH (20:19)
--- NOTE | 2021-08-01 01:56 | NUR ---
Agree with MARIO Galeana's assessment except for the areas that I documented on the physical assessment.
[2021-08-01 02:00] VITALS: BP 164/83
[2021-08-01] MEDS: HYDROcodone/acetaminophen 10/325mg tab PO PRN ×3 (02:04→13:20)
--- NOTE | 2021-08-01 02:15 | NUR ---
Patient still has 10/10 pain even with opiates being given to her. The right hand/arm is still swollen, non pitting and I added another pillow under her right arm to keep above her heart to decrease the swelling. Also placed 2 powder packs/cold to the right elbow/wrist area to decreased the pain and swelling. The cap refill is still< 3seconds and palpable radial pulses. She is sitting in recliner for comfort now.
[2021-08-01 03:30] VITALS: BP 152/78
[2021-08-01] MEDS: dextrose 5%-1/2 normal saline 1,000 ML IV SCH (04:48)
[2021-08-01 05:38] LABS: BASOPHILS % (AUTO) 0.3 % (0-1); EOSINOPHILS % (AUTO) 0 % (0-6); HEMOGLOBIN 11.2 g/dl (12.0-16.0); LYMPHOCYTES # (AUTO) 1.1 X10'3 (1.1-4.8); MEAN PLATELET VOLUME 7.9 FL (7.4-10.4); MONOCYTES # (AUTO) 0.7 X10'3 (0-0.9)
[2021-08-01 05:41] LABS: HEMATOCRIT 34.5 % (35.0-45.0); LYMPHOCYTES % (AUTO) 9.3 % (21-51); MEAN CORPUSCULAR HEMOGLOBIN 29.7 PG (27.0-31.0); MEAN CORPUSCULAR HGB CONC 32.5 g/dL (33.0-36.5); MEAN CORPUSCULAR VOLUME 91.4 FL (78-98); MONOCYTES % (AUTO) 5.9 % (2-12); NEUTROPHILS # (AUTO) 9.7 X10'3 (1.8-7.7); NEUTROPHILS % (AUTO) 84.5 % (42-75); PLATELET COUNT 322 X10'3 (140-440); RED BLOOD COUNT 3.77 X10'6 (4.20-5.60); RED CELL DISTRIBUTION WIDTH 13.9 % (11.5-14.5); WHITE BLOOD COUNT 11.5 X10'3 (4.5-11.0)
[2021-08-01 05:46] LABS: ANION GAP 11 (8-16); BLOOD UREA NITROGEN 6 MG/DL (7-18); BUN/CREATININE RATIO 9.8 (6.6-38.0); CALCIUM 8.8 MG/DL (8.5-10.1); CHLORIDE 99 MMOL/L (99-107); CREATININE 0.61 MG/DL (0.40-0.90); GLUCOSE 182 MG/DL (70-104); SODIUM 135 MMOL/L (135-145); TOTAL CARBON DIOXIDE 24.7 MMOL/L (24-32); eGFR > 90 ML/MIN
[2021-08-01 06:00] VITALS: BP 167/85
--- NOTE | 2021-08-01 06:19 | NUR ---
Problems reprioritized. Patient report given, questions answered & plan of care reviewed with CARL Leslie.
--- NOTE | 2021-08-01 06:41 | NUR ---
Patient in room ORTHO 4009c. I have received report from Lissett MARTIN and had the opportunity to ask questions and assume patient care.
[2021-08-01] MEDS: lamoTRIgine 100mg tablet PO SCH (08:47)
[2021-08-01] MEDS: gabapentin 300mg capsule PO SCH ×2 (08:47→13:20)
[2021-08-01] MEDS: FLUoxetine 20mg capsule PO SCH (08:47)
[2021-08-01] MEDS: atenolol 50mg tablet PO SCH (08:47)
[2021-08-01] MEDS: pantoprazole 40mg Tablet.DR PO SCH (08:47)
[2021-08-01] MEDS: docusate sod 100mg capsule PO SCH (08:47)
[2021-08-01] MEDS: topiramate 25mg tablet PO SCH (08:47)
[2021-08-01] MEDS: multivitamins, therapeutics tablet PO SCH (08:47)
[2021-08-01 10:00] VITALS: BP 98/56
[2021-08-01] MEDS ORDERED: HYDR-3965 PO (12:35)
[2021-08-01 14:00] VITALS: BP 142/80
--- NOTE | 2021-08-07 12:45 | NUR ---
Case Management DC follow up: Left VM with name, telephone number, and reason for calling
== END 2021-08-01 16:09 | disposition home health service (06) | DRG 493 ==
LOC: ER 04:23 → ED HOLD 07:46 → ORTHO 4S 19:06
PROVIDERS: ADMIT Internal Medicine; ATTEND Internal Medicine
PROC: 0PSF04Z Reposition Right Humeral Shaft with Internal Fixation Device, Open Approach (ICD-10-PCS; principal; 2021-07-31 12:17)
DX: S42.411A Displaced simple supracondylar fracture without intercondylar fracture of right humerus, initial encounter for closed fracture (principal); Z68.42 Body mass index [BMI] 45.0-49.9, adult; Z20.822 Contact with and (suspected) exposure to COVID-19; E78.00 Pure hypercholesterolemia, unspecified; E78.5 Hyperlipidemia, unspecified; F17.210 Nicotine dependence, cigarettes, uncomplicated; F32.A Depression, unspecified; I10 Essential (primary) hypertension; I25.10 Atherosclerotic heart disease of native coronary artery without angina pectoris; Z83.3 Family history of diabetes mellitus; Z95.5 Presence of coronary angioplasty implant and graft; Z98.84 Bariatric surgery status; Z90.49 Acquired absence of other specified parts of digestive tract; Z88.0 Allergy status to penicillin; Z88.8 Allergy status to other drugs, medicaments and biological substances; E66.01 Morbid (severe) obesity due to excess calories; Z71.3 Dietary counseling and surveillance
CPT/HCPCS: 36410; 36415; 71045; 73060; 73070; 73080; 73200; 76000; 76937; 80048; 80053; 80320; 81001; 83690; 83735; 83880; 84484; 85025; 85610; 85730; 87081; 93005; 93306; 96374; 97116; 97161; 97530; 99285; A4333; A4565; A4615; A4618; A6258; A6449; A7000; C1713; C1751; G0378; J0360; J0690; J1100; J1170; J2175; J2250; J2270; J2405; J2704; J2710; J3010; J3490; J7042; J7120; S0020

== ENCOUNTER 2021-08-26 09:08 | Emergency (ER) | payer MEDICARE, MEDICAID ==
[~2021-08-26] VITALS: Ht 162.6 cm; Wt 114.5 kg
[~2021-08-26 09:08] MED LIST changes: +ATEN50TA2 PO; -GABA-530 PO; +HYDR-3965 PO; -LEVO500T90 PO; -NALT50TA PO; +TOPI50TA24 PO
[2021-08-26] MEDS ORDERED: dexamethasone sod phosphate 10mg/ml inj IV STA (09:27)
[2021-08-26] MEDS ORDERED: diazepam inj 5 MG/ML inj. IV ONE (09:30)
[2021-08-26] MEDS ORDERED: meclizine 12.5mg tablet PO ONE (09:30)
[2021-08-26] MEDS ORDERED: normal saline 1000ML IV soln IVB ONE (09:30)
[2021-08-26] MEDS ORDERED: metoclopramide 5 mg/ml inj IV ONE (09:30)
[2021-08-26 10:25] LABS: BASOPHILS % (AUTO) 0.2 % (0-1); EOSINOPHILS # (AUTO) 0.1 X10'3 (0-0.9); EOSINOPHILS % (AUTO) 0.9 % (0-6); HEMATOCRIT 36.5 % (35.0-45.0); LYMPHOCYTES # (AUTO) 1.1 X10'3 (1.1-4.8); LYMPHOCYTES % (AUTO) 18.3 % (21-51); MEAN CORPUSCULAR HEMOGLOBIN 29.5 PG (27.0-31.0); MEAN CORPUSCULAR HGB CONC 32.8 g/dL (33.0-36.5); MEAN CORPUSCULAR VOLUME 89.8 FL (78-98); MEAN PLATELET VOLUME 8.1 FL (7.4-10.4); MONOCYTES # (AUTO) 0.4 X10'3 (0-0.9); MONOCYTES % (AUTO) 6.9 % (2-12); NEUTROPHILS # (AUTO) 4.6 X10'3 (1.8-7.7); NEUTROPHILS % (AUTO) 73.7 % (42-75); PLATELET COUNT 298 X10'3 (140-440); RED BLOOD COUNT 4.06 X10'6 (4.20-5.60); RED CELL DISTRIBUTION WIDTH 13.9 % (11.5-14.5); WHITE BLOOD COUNT 6.3 X10'3 (4.5-11.0)
[2021-08-26 10:43] LABS: ALANINE AMINOTRANSFERASE 25 U/L (12-78); ALBUMIN 3.4 G/DL (3.4-5.0); ALBUMIN/GLOBULIN RATIO 1.3 (1.1-1.5); ALKALINE PHOSPHATASE 196 IU/L (46-116); ANION GAP 10 (8-16); ASPARTATE AMINO TRANSFERASE 19 U/L (10-37); BILIRUBIN,TOTAL 0.3 MG/DL (0.1-1.0); BLOOD UREA NITROGEN 6 MG/DL (7-18); BUN/CREATININE RATIO 11.5 (6.6-38.0); CALCIUM 8.4 MG/DL (8.5-10.1); CHLORIDE 109 MMOL/L (99-107); CREATININE 0.52 MG/DL (0.40-0.90); GLUCOSE 120 MG/DL (70-104); POTASSIUM 3.5 MMOL/L (3.5-5.1); SODIUM 143 MMOL/L (135-145); TOTAL CARBON DIOXIDE 24.5 MMOL/L (24-32); TOTAL PROTEIN 6.1 G/DL (6.4-8.2); eGFR > 90 ML/MIN
--- NOTE | 2021-08-26 12:33 | NUR ---
called eliecer for d/c transportation.
[2021-08-26 13:32] VITALS: BP 182/89
== END 2021-08-26 12:55 | disposition home or self-care (01) ==
LOC: ER 09:08
DX: R42 Dizziness and giddiness (principal); I10 Essential (primary) hypertension; G89.29 Other chronic pain; M54.50 Low back pain, unspecified; Z88.0 Allergy status to penicillin; Z88.5 Allergy status to narcotic agent; Z91.018 Allergy to other foods; Z90.49 Acquired absence of other specified parts of digestive tract
CPT/HCPCS: 36415; 80053; 85025; 96360; 96361; 99283; J2765; J3360; J7030; J8597

== ENCOUNTER 2021-12-06 23:45 | Inpatient (IN) | payer MEDICARE, MEDICAID ==
[~2021-12-06] VITALS: Ht 162.6 cm; Wt 120.9 kg
[~2021-12-06 23:45] MED LIST changes: -HYDR-3965 PO
[2021-12-07] MEDS ORDERED: morphine 4 MG/ML inj SYRINge IV ONE ×2 (00:05→01:25)
[2021-12-07] MEDS ORDERED: LIDOcaine 2% 10ml TOPICAL JELLY (Urojet) TP ONE (02:05)
[2021-12-07] MEDS ORDERED: HYDROmorphone 1 mg/ml syringe IV ONE (02:05)
[2021-12-07] MEDS ORDERED: mag hydrox/Alum hydrox/simeth 30ml oral suspension PO PRN (02:15)
[2021-12-07] MEDS ORDERED: potassium Cl 40MEQ/1/2NS 520ml 520 ML IV PRN (02:15)
[2021-12-07] MEDS ORDERED: ondansetron/PF 4mg/2ml inj IV PRN (02:15)
[2021-12-07] MEDS ORDERED: magnesium 4gm in 100ml NS 100 ML IV PRN (02:15)
[2021-12-07] MEDS ORDERED: magnesium hydroxide 30ml (MOM) UD suspension PO PRN (02:15)
--- NOTE | 2021-12-07 02:15 | NUR ---
Patient refusing EKG, refusing to be placed on a Tenter Feeder, and also refusing to be put in gown.
[2021-12-07 02:20] LABS: BASOPHILS % (AUTO) 0.3 % (0-1); EOSINOPHILS % (AUTO) 0.2 % (0-6); HEMATOCRIT 34.3 % (35.0-45.0); HEMOGLOBIN 11.2 g/dl (12.0-16.0); LYMPHOCYTES # (AUTO) 1.8 X10'3 (1.1-4.8); LYMPHOCYTES % (AUTO) 14.5 % (21-51); MEAN CORPUSCULAR HEMOGLOBIN 28.9 PG (27.0-31.0); MEAN CORPUSCULAR HGB CONC 32.6 g/dL (33.0-36.5); MEAN CORPUSCULAR VOLUME 88.7 FL (78-98); MEAN PLATELET VOLUME 7.3 FL (7.4-10.4); MONOCYTES % (AUTO) 8.1 % (2-12); NEUTROPHILS # (AUTO) 9.5 X10'3 (1.8-7.7); NEUTROPHILS % (AUTO) 76.9 % (42-75); PLATELET COUNT 389 X10'3 (140-440); RED BLOOD COUNT 3.86 X10'6 (4.20-5.60); RED CELL DISTRIBUTION WIDTH 13.7 % (11.5-14.5); WHITE BLOOD COUNT 12.3 X10'3 (4.5-11.0)
[2021-12-07] MEDS ORDERED: naloxone 0.4 mg/ml inj IV PRN (02:20)
[2021-12-07 02:35] LABS: ALANINE AMINOTRANSFERASE 35 U/L (12-78); ALBUMIN 3.5 G/DL (3.4-5.0); ALBUMIN/GLOBULIN RATIO 1.2 (1.1-1.5); ALKALINE PHOSPHATASE 160 IU/L (46-116); ANION GAP 14 (8-16); ASPARTATE AMINO TRANSFERASE 44 U/L (10-37); BILIRUBIN,TOTAL 0.2 MG/DL (0.1-1.0); BLOOD UREA NITROGEN 8 MG/DL (7-18); BUN/CREATININE RATIO 13.1 (6.6-38.0); CALCIUM 8.7 MG/DL (8.5-10.1); CHLORIDE 100 MMOL/L (99-107); CREATININE 0.61 MG/DL (0.40-0.90); GLUCOSE 198 MG/DL (70-104); POTASSIUM 3.8 MMOL/L (3.5-5.1); SODIUM 133 MMOL/L (135-145); TOTAL PROTEIN 6.4 G/DL (6.4-8.2); eGFR > 90 ML/MIN
--- NOTE | 2021-12-07 02:35 | NUR ---
Patient continuing to cry and yell in pain despite interventions.
[2021-12-07] MEDS: HYDROmorph/NS 0.2 mg/ml PCA 100 ML IV SCH ×11 (03:55→23:00)
[2021-12-07] MEDS: normal saline 1000ml 1,000 ML IV SCH ×3 (03:56→22:15)
--- NOTE | 2021-12-07 03:56 | NUR ---
Patient continues to refuse EKG and will not allow nurse to touch her and/or the bed therefore also refusing BP.
--- NOTE | 2021-12-07 04:20 | NUR ---
Patient continuing to refuse BP, Crossing Supervisor, Torres, and transfer to Hospital Bed from [facility].
--- NOTE | 2021-12-07 05:03 | NUR ---
patient calm and no longer crying and yelling.
--- NOTE | 2021-12-07 06:20 | NUR ---
ATTEMPT PRE-OP EKG, STILL REFUSING AT THIS TIME.
--- NOTE | 2021-12-07 07:02 | NUR ---
Patient in room ED 3. I have received report from Ariane Lam in the Ed and had the opportunity to ask questions and assume patient care.
--- NOTE | 2021-12-07 07:09 | NUR ---
Pt is refusing a rothman cath at this time and the pt is refusing for me to take a blood pressure. Charge nurse has been notified.
--- NOTE | 2021-12-07 07:30 | NUR ---
Pt refused rothman catheter. Does not want her legs moved at all. Wishes to have rothman placed when she is in the OR and "asleep".
[2021-12-07 07:47] LABS: POTASSIUM 4.7 MMOL/L (3.5-5.1)
[2021-12-07] MEDS: docusate sod 100mg capsule PO SCH ×2 (08:00→22:15)
[2021-12-07] MEDS ORDERED: PCA WASTE DOCUMENTATION MC SCH (08:00)
[2021-12-07] MEDS: K and/or MAG REPLACEMENT MC SCH ×2 (08:00→20:00)
[2021-12-07] MEDS ORDERED: TRAZ-251 PO (15:10)
[2021-12-07 16:00] LABS: HEMOGLOBIN A1C 6.8 % (4.5-6.2)
--- NOTE | 2021-12-07 16:03 | NUR ---
Page Sent promotional table spacer PAGER ID: [phone] MESSAGE: Dr Solorio, med rec for Elidia Locke in 9225c is completed Carrie HENRY
[2021-12-07 18:00] VITALS: BP 133/91
--- NOTE | 2021-12-07 18:37 | NUR ---
Problems reprioritized. Patient report given, questions answered & plan of care reviewed with Melvina.
[2021-12-07] MEDS ORDERED: traZODone 50mg tablet PO PRN (19:50)
[2021-12-07 22:00] VITALS: BP 143/59
[2021-12-07] MEDS: atorvastatin 10mg tablet PO SCH (22:14)
[2021-12-07] MEDS: lamoTRIgine 100mg tablet PO SCH (22:14)
[2021-12-07] MEDS: pantoprazole 40mg Tablet.DR PO SCH (22:15)
[2021-12-07] MEDS: gabapentin 300mg capsule PO SCH (22:15)
[2021-12-07] MEDS: atenolol 50mg tablet PO SCH (22:18)
[2021-12-08] VITALS (17 sets, daily range): BP systolic 126–209; BP diastolic 52–102
[2021-12-08] MEDS: HYDROmorph/NS 0.2 mg/ml PCA 100 ML IV SCH ×12 (01:00→23:00)
[2021-12-08] MEDS: normal saline 1000ml 1,000 ML IV SCH ×2 (03:40→20:43)
--- NOTE | 2021-12-08 05:55 | NUR ---
Overnight, pt using RIGGING SLINGER appropriately. She would fall asleep in between care. She stated her pain would come back whenever she woke up. Pt refused any turns. Reinforced to her the need to turn to help protect skin. She stated she realized she needed to but was to afraid of the pain. Pt ultimately refused all turns on night supervisor. Pt has been NPO since midnight for surgery today.
--- NOTE | 2021-12-08 06:10 | NUR ---
Patient in room PCU 3026. I have received report from Melvina HENRY and had the opportunity to ask questions and assume patient care.
[2021-12-08 07:23] LABS: BASOPHILS % (AUTO) 0.4 % (0-1); EOSINOPHILS % (AUTO) 0 % (0-6); HEMATOCRIT 30.9 % (35.0-45.0); HEMOGLOBIN 10.2 g/dl (12.0-16.0); LYMPHOCYTES # (AUTO) 1.7 X10'3 (1.1-4.8); LYMPHOCYTES % (AUTO) 15.1 % (21-51); MEAN CORPUSCULAR HEMOGLOBIN 29.8 PG (27.0-31.0); MEAN CORPUSCULAR HGB CONC 33.1 g/dL (33.0-36.5); MEAN PLATELET VOLUME 7.4 FL (7.4-10.4); MONOCYTES # (AUTO) 1.5 X10'3 (0-0.9); MONOCYTES % (AUTO) 13.5 % (2-12); PLATELET COUNT 361 X10'3 (140-440); RED BLOOD COUNT 3.43 X10'6 (4.20-5.60); WHITE BLOOD COUNT 11.2 X10'3 (4.5-11.0)
[2021-12-08 07:54] LABS: ALANINE AMINOTRANSFERASE 35 U/L (12-78); ALKALINE PHOSPHATASE 180 IU/L (46-116); ANION GAP 6 (8-16); ASPARTATE AMINO TRANSFERASE 40 U/L (10-37); BLOOD UREA NITROGEN 8 MG/DL (7-18); CALCIUM 8.8 MG/DL (8.5-10.1); CHLORIDE 99 MMOL/L (99-107); CREATININE 0.57 MG/DL (0.40-0.90); GLUCOSE 174 MG/DL (70-104); MAGNESIUM 1.8 MG/DL (1.5-2.4); POTASSIUM 4.5 MMOL/L (3.5-5.1); SODIUM 131 MMOL/L (135-145); TOTAL CARBON DIOXIDE 25.8 MMOL/L (24-32); eGFR > 90 ML/MIN
[2021-12-08] MEDS: K and/or MAG REPLACEMENT MC SCH ×2 (08:00→20:46)
[2021-12-08] MEDS: pantoprazole 40mg Tablet.DR PO SCH (08:00)
[2021-12-08] MEDS: gabapentin 300mg capsule PO SCH ×3 (08:00→20:36)
[2021-12-08] MEDS: atenolol 50mg tablet PO SCH (08:00)
[2021-12-08] MEDS: lamoTRIgine 100mg tablet PO SCH ×2 (08:00→20:36)
[2021-12-08] MEDS: FLUoxetine 20mg capsule PO SCH (08:00)
[2021-12-08] MEDS: docusate sod 100mg capsule PO SCH ×2 (08:00→20:36)
[2021-12-08] MEDS: heparin, porcine 5000 units/ml vial SQ SCH ×2 (09:36→20:36)
--- NOTE | 2021-12-08 11:48 | NUR ---
DM Consult: Pt hx T2DM A1C 6.8% per EMR; appropriate at this time. Addendum: 12/08/21 at [address] Amended: Links added.
[2021-12-08] MEDS ORDERED: vancomycin 1,000mg inj ONE (15:56)
[2021-12-08] MEDS ORDERED: BUPIVAcaine/PF 2.5 mg/ml (0.25%) 30ml vial ONE (15:57)
[2021-12-08] MEDS ORDERED: dexamethasone sod phosphate 10mg/ml inj ONE (16:43)
[2021-12-08] MEDS ORDERED: labetalol 20mg/4ml (5mg/ml) syringe IV PRN (16:45)
[2021-12-08] MEDS ORDERED: ringers solution, lacted 1,000 ML IV SCH (16:45)
[2021-12-08] MEDS ORDERED: morphine 4 MG/ML inj SYRINge IV PRN (16:45)
[2021-12-08] MEDS ORDERED: fentaNYL/PF 50MCG/1 ML 2ML syringe IV PRN ×3 (16:45)
[2021-12-08] MEDS ORDERED: hydrALAZINE 20mg/ml inj. IV PRN (16:45)
[2021-12-08] MEDS ORDERED: ondansetron/PF 4mg/2ml inj IV PRN (16:45)
[2021-12-08] MEDS ORDERED: LIDOcaine 2% (20mg/ml) 5ml vial ONE (16:47)
[2021-12-08] MEDS ORDERED: propofol inj 20 ML IV ONE (16:47)
[2021-12-08] MEDS ORDERED: fentaNYL /PF 50mcg/ml 5ml ampule ONE (16:54)
[2021-12-08] MEDS ORDERED: ceFAZolin 1000mg inj ONE ×2 (17:03→17:04)
[2021-12-08] MEDS ORDERED: ondansetron/PF 4mg/2ml inj ONE (17:05)
--- NOTE | 2021-12-08 17:43 | NUR ---
Received from OR via BED, accompanied by Anesthesiologist and report given by VIJAYA Anesthesiologist. PATIENT WAKING UP, C/O SEVERE PAIN-WILL MEDICATE, INCREASED SBP TO 209, 22G TO LEFT HAND, DRESSING to LEFT LEG C/D/I. Addendum: 12/08/21 at 1816 by Abhi Trevino RN Amended: Links added.
--- NOTE | 2021-12-08 18:28 | NUR ---
PATIENT HAS MET ALL CRITERIA FOR TRANSFER TO PCU FLOOR. VSS. DRESSINGS INTACT. BED LOW, CALL LIGHT PRESENT AND 2 RAILS UP. RN PRESENT TO ACCEPT CARE OF PATIENT AND REPORT HAS BEEN CALLED. ALL QUESTIONS ANSWERED TO ACCEPTING RN. Addendum: 12/08/21 at 1839 by Abhi Trevino RN Amended: Links added.
--- NOTE | 2021-12-08 18:30 | NUR ---
Problems reprioritized. Patient report given, questions answered & plan of care reviewed with Melvina Drummond, patient not back from recovery yet.
[2021-12-08] MEDS: atorvastatin 10mg tablet PO SCH (20:36)
--- NOTE | 2021-12-08 22:34 | NUR ---
Called and spoke with Dr Solorio due to pt wanting tylenol and reason is for fever only. stated ok to change parameter to include for pain as well. See order.
[2021-12-08] MEDS: cefazolin/dext.iso 2gm/100ml 100 ML IV SCH (23:07)
[2021-12-08] MEDS: acetaminophen 325mg tablet PO PRN (23:33)
[2021-12-09] VITALS (7 sets, daily range): BP systolic 118–156; BP diastolic 43–72
[2021-12-09] MEDS: HYDROmorph/NS 0.2 mg/ml PCA 100 ML IV SCH ×6 (01:00→11:00)
[2021-12-09] MEDS: normal saline 1000ml 1,000 ML IV SCH ×2 (04:15→08:32)
[2021-12-09 06:14] LABS: BASOPHILS % (AUTO) 0.1 % (0-1); EOSINOPHILS % (AUTO) 0 % (0-6); HEMATOCRIT 30.8 % (35.0-45.0); HEMOGLOBIN 9.9 g/dl (12.0-16.0); LYMPHOCYTES # (AUTO) 0.9 X10'3 (1.1-4.8); LYMPHOCYTES % (AUTO) 9.2 % (21-51); MEAN CORPUSCULAR HEMOGLOBIN 29.7 PG (27.0-31.0); MEAN CORPUSCULAR HGB CONC 32.1 g/dL (33.0-36.5); MEAN CORPUSCULAR VOLUME 92.5 FL (78-98); MEAN PLATELET VOLUME 7.5 FL (7.4-10.4); MONOCYTES # (AUTO) 0.9 X10'3 (0-0.9); MONOCYTES % (AUTO) 9.1 % (2-12); NEUTROPHILS # (AUTO) 8.2 X10'3 (1.8-7.7); NEUTROPHILS % (AUTO) 81.6 % (42-75); PLATELET COUNT 322 X10'3 (140-440); RED BLOOD COUNT 3.32 X10'6 (4.20-5.60); RED CELL DISTRIBUTION WIDTH 14.1 % (11.5-14.5); WHITE BLOOD COUNT 10.1 X10'3 (4.5-11.0)
--- NOTE | 2021-12-09 06:16 | NUR ---
Problems reprioritized. Patient report given, questions answered & plan of care reviewed with Melvina HENRY.
[2021-12-09 06:21] LABS: ALANINE AMINOTRANSFERASE 32 U/L (12-78); ALBUMIN 2.8 G/DL (3.4-5.0); ALBUMIN/GLOBULIN RATIO 0.8 (1.1-1.5); ALKALINE PHOSPHATASE 179 IU/L (46-116); ANION GAP 4 (8-16); ASPARTATE AMINO TRANSFERASE 27 U/L (10-37); BILIRUBIN,TOTAL 0.4 MG/DL (0.1-1.0); BLOOD UREA NITROGEN 6 MG/DL (7-18); BUN/CREATININE RATIO 9.5 (6.6-38.0); CALCIUM 9.3 MG/DL (8.5-10.1); CHLORIDE 100 MMOL/L (99-107); CREATININE 0.63 MG/DL (0.40-0.90); GLUCOSE 226 MG/DL (70-104); POTASSIUM 4.3 MMOL/L (3.5-5.1); SODIUM 133 MMOL/L (135-145); TOTAL CARBON DIOXIDE 28.7 MMOL/L (24-32); TOTAL PROTEIN 6.1 G/DL (6.4-8.2); eGFR > 90 ML/MIN
--- NOTE | 2021-12-09 06:52 | NUR ---
Problems reprioritized. Patient report given, questions answered & plan of care reviewed with Yady. Drips verified. Pt in no acute distress at handoff.
[2021-12-09] MEDS: K and/or MAG REPLACEMENT MC SCH ×2 (08:00→20:00)
[2021-12-09] MEDS: gabapentin 300mg capsule PO SCH ×3 (08:32→20:44)
[2021-12-09] MEDS: FLUoxetine 20mg capsule PO SCH (08:34)
[2021-12-09] MEDS: heparin, porcine 5000 units/ml vial SQ SCH ×2 (08:35→20:45)
[2021-12-09] MEDS: pantoprazole 40mg Tablet.DR PO SCH (08:36)
[2021-12-09] MEDS: lamoTRIgine 100mg tablet PO SCH ×2 (08:37→20:44)
[2021-12-09] MEDS: docusate sod 100mg capsule PO SCH ×2 (08:37→20:44)
[2021-12-09] MEDS: atenolol 50mg tablet PO SCH (08:37)
[2021-12-09] MEDS: acetaminophen 325mg tablet PO PRN (09:11)
[2021-12-09] MEDS ORDERED: HYDROmorphone inj. 0.5 MG/0.5 ML DISP.SYRIN IV PRN (09:50)
[2021-12-09] MEDS: cefazolin/dext.iso 2gm/100ml 100 ML IV SCH ×2 (12:12→18:55)
[2021-12-09] MEDS: HYDROcodone/acetaminophen 10/325mg tab PO PRN ×2 (14:39→19:04)
--- NOTE | 2021-12-09 19:08 | NUR ---
Problems reprioritized. Patient report given, questions answered & plan of care reviewed with Elaine HENRY, patient stable at transfer of care.
--- NOTE | 2021-12-09 20:38 | NUR ---
paged Dr. Solorio. awaiting reply florencio [id number] - pt Chucky [id number]. not able to get IV access. can't give IV dilaudid. may we increase norco 10 to 1 or 2 tabs q4prn pain. has R shoulder displaced fracture and external fixation on left tib/fib. thx
[2021-12-09] MEDS: atorvastatin 10mg tablet PO SCH (20:44)
[2021-12-09] MEDS ORDERED: HYDROcodone/acetaminophen 10/325mg tab PO ONE (21:05)
--- NOTE | 2021-12-10 | NUR ---
ultrasound guided IV started by Ivon, Correctional Supply Supervisor CARL.
[2021-12-10] MEDS: normal saline 1000ml 1,000 ML IV SCH ×2 (01:00→10:15)
[2021-12-10] MEDS: HYDROcodone/acetaminophen 10/325mg tab PO PRN ×4 (01:39→15:03)
[2021-12-10 01:45] VITALS: BP 147/47
--- NOTE | 2021-12-10 03:23 | NUR ---
agree with student assessment by Sarah.
--- NOTE | 2021-12-10 06:25 | NUR ---
Gave report to CARL Conteh. Noted patient received pain meds at 0545, refused blood draw until later. Anticipate discharge to [facility].
[2021-12-10 07:26] VITALS: BP 133/53
[2021-12-10] MEDS: heparin, porcine 5000 units/ml vial SQ SCH (07:40)
[2021-12-10] MEDS: FLUoxetine 20mg capsule PO SCH (07:41)
[2021-12-10] MEDS: gabapentin 300mg capsule PO SCH ×2 (07:41→15:04)
[2021-12-10] MEDS: docusate sod 100mg capsule PO SCH (07:41)
[2021-12-10] MEDS: lamoTRIgine 100mg tablet PO SCH (07:41)
[2021-12-10] MEDS: pantoprazole 40mg Tablet.DR PO SCH (07:42)
[2021-12-10] MEDS: atenolol 50mg tablet PO SCH (07:42)
[2021-12-10] MEDS: K and/or MAG REPLACEMENT MC SCH (08:00)
[2021-12-10 09:48] LABS: ALANINE AMINOTRANSFERASE 21 U/L (12-78); ALBUMIN 2.5 G/DL (3.4-5.0); ALBUMIN/GLOBULIN RATIO 0.8 (1.1-1.5); ALKALINE PHOSPHATASE 134 IU/L (46-116); ANION GAP 7 (8-16); ASPARTATE AMINO TRANSFERASE 19 U/L (10-37); BILIRUBIN,TOTAL 0.4 MG/DL (0.1-1.0); BLOOD UREA NITROGEN 12 MG/DL (7-18); CALCIUM 8.9 MG/DL (8.5-10.1); CHLORIDE 103 MMOL/L (99-107); CREATININE 0.75 MG/DL (0.40-0.90); GLUCOSE 215 MG/DL (70-104); MAGNESIUM 1.8 MG/DL (1.5-2.4); POTASSIUM 3.4 MMOL/L (3.5-5.1); SODIUM 138 MMOL/L (135-145); TOTAL CARBON DIOXIDE 28.5 MMOL/L (24-32); TOTAL PROTEIN 5.6 G/DL (6.4-8.2); eGFR 79 ML/MIN
[2021-12-10 09:50] LABS: BASOPHILS % (AUTO) 0.3 % (0-1); EOSINOPHILS % (AUTO) 0.1 % (0-6); HEMATOCRIT 25.4 % (35.0-45.0); HEMOGLOBIN 8.4 g/dl (12.0-16.0); LYMPHOCYTES % (AUTO) 25.7 % (21-51); MEAN CORPUSCULAR HGB CONC 33.1 g/dL (33.0-36.5); MEAN CORPUSCULAR VOLUME 90.5 FL (78-98); MEAN PLATELET VOLUME 7.4 FL (7.4-10.4); MONOCYTES # (AUTO) 0.5 X10'3 (0-0.9); MONOCYTES % (AUTO) 6.4 % (2-12); NEUTROPHILS # (AUTO) 5.4 X10'3 (1.8-7.7); NEUTROPHILS % (AUTO) 67.5 % (42-75); PLATELET COUNT 353 X10'3 (140-440); RED CELL DISTRIBUTION WIDTH 13.7 % (11.5-14.5)
[2021-12-10] MEDS ORDERED: POTASSIUM BICARB 20meq eff tab 20 MEQ TABLET.EFF PO PRN (10:10)
[2021-12-10 12:11] VITALS: BP 113/44
--- NOTE | 2021-12-10 16:34 | NUR ---
Pt stable for transfer to [facility] per Dr. Silver. Called and gave report to RN. All belongings collected and sent with patient. Picked up by yoel cargo.
--- NOTE | 2021-12-16 12:32 | NUR ---
Case Management DC follow up: Patient transferred to [facility].
== END 2021-12-10 15:46 | DRG 493 ==
LOC: ER 23:47 → ED HOLD 12-07 02:17 → PCU 3S 12-07 07:40
PROVIDERS: ADMIT Internal Medicine; ATTEND Internal Medicine
PROC: 0QSH35Z Reposition Left Tibia with External Fixation Device, Percutaneous Approach (ICD-10-PCS; principal; 2021-12-08 16:43)
DX: S82.142A Displaced bicondylar fracture of left tibia, initial encounter for closed fracture (principal); S42.291A Other displaced fracture of upper end of right humerus, initial encounter for closed fracture; Z68.42 Body mass index [BMI] 45.0-49.9, adult; Z20.822 Contact with and (suspected) exposure to COVID-19; E78.00 Pure hypercholesterolemia, unspecified; F32.A Depression, unspecified; G62.9 Polyneuropathy, unspecified; E66.01 Morbid (severe) obesity due to excess calories; F41.9 Anxiety disorder, unspecified; G47.33 Obstructive sleep apnea (adult) (pediatric); G89.29 Other chronic pain; M54.9 Dorsalgia, unspecified; I10 Essential (primary) hypertension; W01.0XXA Fall on same level from slipping, tripping and stumbling without subsequent striking against object, initial encounter; I25.10 Atherosclerotic heart disease of native coronary artery without angina pectoris; K21.9 Gastro-esophageal reflux disease without esophagitis; F17.210 Nicotine dependence, cigarettes, uncomplicated; Z95.5 Presence of coronary angioplasty implant and graft; Z98.84 Bariatric surgery status; Y93.89 Activity, other specified; Y92.89 Other specified places as the place of occurrence of the external cause; Y99.8 Other external cause status; Z88.0 Allergy status to penicillin; Z88.8 Allergy status to other drugs, medicaments and biological substances; Z90.49 Acquired absence of other specified parts of digestive tract; Z79.899 Other long term (current) drug therapy
CPT/HCPCS: 36415; 71045; 73030; 73200; 73502; 73560; 73590; 76000; 80053; 82948; 83036; 83735; 84132; 85025; 87081; 87811; 93005; 94760; 96374; 96375; 96376; 99285; A4565; A4615; A4618; A6222; A6258; A6402; A6446; A6449; A7000; G0378; J0690; J1100; J1170; J1644; J2270; J2405; J2704; J3010; J3370; J3490; J7030; J7120

== ENCOUNTER 2022-06-25 05:59 | Day surgery (SDC) | payer MEDICARE, MEDICAID ==
[2022-06-17 15:26] LABS: BASOPHILS % (AUTO) 0.3 % (0-1); EOSINOPHILS # (AUTO) 0.1 X10'3 (0-0.9); EOSINOPHILS % (AUTO) 0.7 % (0-6); LYMPHOCYTES # (AUTO) 2.1 X10'3 (1.1-4.8); LYMPHOCYTES % (AUTO) 21.7 % (21-51); MEAN CORPUSCULAR HEMOGLOBIN 31.8 PG (27.0-31.0); MEAN CORPUSCULAR HGB CONC 33.4 g/dL (33.0-36.5); MEAN CORPUSCULAR VOLUME 95.2 FL (78-98); MEAN PLATELET VOLUME 7.8 FL (7.4-10.4); MONOCYTES # (AUTO) 0.7 X10'3 (0-0.9); NEUTROPHILS # (AUTO) 6.8 X10'3 (1.8-7.7); NEUTROPHILS % (AUTO) 70.3 % (42-75); PRE OP HEMOGLOBIN 14.4 g/dL (12.0-16.0); PRE OP PLATELET COUNT 393 X10'3 (140-440); RED BLOOD COUNT 4.52 X10'6 (4.20-5.60); RED CELL DISTRIBUTION WIDTH 13.3 % (11.5-14.5)
[2022-06-17 15:43] LABS: ALBUMIN 4.2 G/DL (3.4-5.0); ALBUMIN/GLOBULIN RATIO 1.2 (1.1-1.5); ALKALINE PHOSPHATASE 167 IU/L (46-116); BLOOD UREA NITROGEN 13 MG/DL (7-18); BUN/CREATININE RATIO 19.4 (10.0-20.0); CALCIUM 9.7 MG/DL (8.5-10.1); CHLORIDE 96 MMOL/L (99-107); CREATININE 0.67 MG/DL (0.40-0.90); PRE OP ALT 33 U/L (30-65); PRE OP ANION GAP 12 (8-16); PRE OP AST 31 U/L (10-37); PRE OP BILIRUB, TOTAL 0.6 MG/DL (0.0-1.0); PRE OP GLUCOSE 104 MG/DL (70-104); PRE OP POTASSIUM 3.9 MMOL/L (3.4-5.1); PRE OP SODIUM 134 MMOL/L (135-145); TOTAL CARBON DIOXIDE 25.7 MMOL/L (24-32); TOTAL PROTEIN 7.8 G/DL (6.4-8.2); eGFR 90 ML/MIN
[~2022-06-25] VITALS: Ht 162.6 cm; Wt 109.0 kg
[~2022-06-25 05:59] MED LIST changes: +AMLO5TAB16 PO; -ATEN50TA2 PO; +MECL-159 PO; -TOPI50TA24 PO; +clindamycin-Cleocin 900mg/D5W 50 ML IV ONE; +famotidine 20mg tablet PO ONE; +ringers solution, lacted 1,000 ML IV SCH
[2022-06-25 06:30] VITALS: BP 129/67
[2022-06-25] MEDS ORDERED: BUPIVAcaine/PF 2.5 mg/ml (0.25%) 30ml vial ONE (06:42)
[2022-06-25] MEDS ORDERED: LIDOcaine 0.5% (5mg/ml) 50ml vial ONE (07:37)
[2022-06-25] MEDS ORDERED: fentaNYL/PF 50MCG/1 ML 2ML syringe ONE (08:33)
[2022-06-25] MEDS ORDERED: morphine 4 MG/ML inj SYRINge IV PRN (08:45)
[2022-06-25] MEDS ORDERED: ringers solution, lacted 1,000 ML IV SCH (08:45)
[2022-06-25] MEDS ORDERED: morphine 2 MG/ML inj. syringe IV PRN (08:45)
[2022-06-25] MEDS ORDERED: ondansetron/PF 4mg/2ml inj IV PRN (08:45)
[2022-06-25] MEDS ORDERED: proCHLORperazine 10 MG/2 ml inj IV PRN (08:45)
[2022-06-25] MEDS ORDERED: meperidine/PF 25mg/ml syringe IV PRN ×3 (08:45)
[2022-06-25] MEDS ORDERED: MIDAZolam 1 MG/ML 5ML VIAL ONE (09:05)
[2022-06-25] MEDS ORDERED: ketamine 50mg/5ml syringe ONE (09:06)
[2022-06-25] MEDS ORDERED: propofol inj 20 ML IV ONE (09:26)
[2022-06-25 09:28] VITALS: BP 129/67
--- NOTE | 2022-06-25 09:28 | NUR ---
Received from OR via brittany, accompanied by Anesthesiologist and report given by Elaina Anesthesiologist. PATIENT ALERT AND AWAKE, DENIES PAIN, VSS, 20G PIV TO LEFT FOREARM, RIGHT ELBOW DRESSING C/D/I. ICE AND ELEVATE RUE. Addendum: 06/25/22 at 1000 by Abhi Trevino RN Amended: Links added.
[2022-06-25 09:40] VITALS: BP 152/74
[2022-06-25 09:50] VITALS: BP 146/65
[2022-06-25 10:00] VITALS: BP 131/61
--- NOTE | 2022-06-25 10:08 | NUR ---
ALL DISCHARGE CRITERIA HAS BEEN MET. VSS, PAIN AT A TOLERABLE LEVEL, ABLE TO SAFELY AMBULATE AND TRANSFER SELF. IV TAKEN OUT WITHOUT ANY COMPLICATIONS. ALL DISCHARGE INSTRUCTIONS COVERED WITH PATIENT AND ALL QUESTIONS ANSWERED. PATIENT TAKEN OUT VIA WHEELCHAIR WITH ALL BELONGINGS TO PERSONAL VEHICLE WHERE FAMILY DROVE PATIENT HOME. Addendum: 06/25/22 at 1015 by Abhi Trevino RN Amended: Links added.
== END 2022-06-25 10:08 | disposition home or self-care (01) ==
LOC: PAS 05:59
PROVIDERS: ATTEND Orthopaedic Surgery Hand Surgery
DX: T84.84XA Pain due to internal orthopedic prosthetic devices, implants and grafts, initial encounter (principal); M70.21 Olecranon bursitis, right elbow; E78.00 Pure hypercholesterolemia, unspecified; G47.33 Obstructive sleep apnea (adult) (pediatric); I10 Essential (primary) hypertension; K21.9 Gastro-esophageal reflux disease without esophagitis; I25.10 Atherosclerotic heart disease of native coronary artery without angina pectoris; F32.A Depression, unspecified; E66.9 Obesity, unspecified; Z68.41 Body mass index [BMI] 40.0-44.9, adult; F41.9 Anxiety disorder, unspecified; Z79.899 Other long term (current) drug therapy; Z96.652 Presence of left artificial knee joint; Z87.891 Personal history of nicotine dependence; Z72.89 Other problems related to lifestyle; Z95.5 Presence of coronary angioplasty implant and graft; Z90.49 Acquired absence of other specified parts of digestive tract; Z98.84 Bariatric surgery status; Z98.890 Other specified postprocedural states; Z88.0 Allergy status to penicillin; Y83.8 Other surgical procedures as the cause of abnormal reaction of the patient, or of later complication, without mention of misadventure at the time of the procedure; Y92.89 Other specified places as the place of occurrence of the external cause
CPT/HCPCS: 20680; 24105; 36415; 80053; 82948; 85025; 93005; A6222; J2250; J2704; J3010; J3490; J7030; J7120; Z7506; Z7512; A4215; A4618; A6446; A6449; A7000

== ENCOUNTER 2022-10-16 15:21 | Emergency (ER) | payer MEDICARE, MEDICAID ==
[~2022-10-16 15:21] MED LIST changes: -MECL-159 PO; +MECL-302 PO; -clindamycin-Cleocin 900mg/D5W 50 ML IV ONE; -famotidine 20mg tablet PO ONE; -ringers solution, lacted 1,000 ML IV SCH
== END 2022-10-16 17:50 | disposition left against medical advice (07) ==
LOC: ER 15:22
DX: R11.2 Nausea with vomiting, unspecified (principal); Z53.21 Procedure and treatment not carried out due to patient leaving prior to being seen by health care provider

== ENCOUNTER 2023-06-17 13:57 | Day surgery (SDC) | payer MEDICARE, MEDICAID ==
[~2023-06-17] VITALS: Ht 162.6 cm; Wt 118.4 kg
[2023-06-17] VITALS (9 sets, daily range): BP systolic 130–160; BP diastolic 60–94; PULSE 62–74; RESP 14–17; TEMP 97.8; O2SAT 95–98
[2023-06-17] MEDS ORDERED: AMLO1CAP10 PO (14:16)
[2023-06-17] MEDS ORDERED: EZET10TA48 PO (14:16)
[2023-06-17] MEDS ORDERED: CARB1TAB36 PO (14:16)
[2023-06-17] MEDS ORDERED: SIMV-45 PO (14:16)
[2023-06-17 16:50] LABS: GLUCOSE,CSF 77 MG/DL (40-75); TOTAL PROTEIN,CSF 53 MG/DL (15-45)
[2023-06-17 17:53] LABS: APPEARANCE,CSF CLEAR; CSF RBC 84 /CU MM (0); CSF SUPERNATANT COLOR COLORLESS; CSF VOLUME 11 ML; CSF WBC CT 1 /CU MM (0-5); TUBE# COUNTED 4
[2023-06-20 12:31] LABS: IMMUNOGLOBULIN G, QN, SERUM 176 mg/dL (586-1602)
[2023-06-22 17:14] LABS: IMMUNOGLOBULIN G, QN CSF <0.8 mg/dL (0.0-6.7); VDRL, CSF Non Reactive (Non Rea:<1:1)
== END 2023-06-17 17:40 | disposition home or self-care (01) ==
LOC: SSTAY O 13:57
PROVIDERS: ATTEND Psychiatry & Neurology Neurology
DX: R90.82 White matter disease, unspecified (principal); F03.90 Unspecified dementia, unspecified severity, without behavioral disturbance, psychotic disturbance, mood disturbance, and anxiety; Z88.0 Allergy status to penicillin; Z88.8 Allergy status to other drugs, medicaments and biological substances; Z79.899 Other long term (current) drug therapy
CPT/HCPCS: 36415; 62328; 77002; 82040; 82042; 82784; 82945; 83873; 83916; 84157; 86592; 86617; 87015; 87070; 87102; 88108; 89051

== ENCOUNTER 2024-06-11 12:22 | Inpatient (IN) | payer MEDICARE, MEDICAID ==
[~2024-06-11] VITALS: Ht 162.6 cm; Wt 125.0 kg
[~2024-06-11 12:22] MED LIST changes: +AMLO1CAP10 PO; -AMLO5TAB16 PO; +CARB1TAB36 PO; +EZET10TA48 PO; -GABA300C PO; -SIMV-42 PO; +SIMV-45 PO
[2024-06-11 13:08] LABS: BASOPHILS % (AUTO) 0.5 % (0-1); EOSINOPHILS # (AUTO) 0.1 X10'3 (0-0.9); EOSINOPHILS % (AUTO) 0.9 % (0-6); HEMATOCRIT 39.9 % (35.0-45.0); HEMOGLOBIN 13.1 g/dl (12.0-16.0); LYMPHOCYTES # (AUTO) 2.2 X10'3 (1.1-4.8); LYMPHOCYTES % (AUTO) 23.3 % (21-51); MEAN CORPUSCULAR HEMOGLOBIN 30.2 PG (27.0-31.0); MEAN CORPUSCULAR VOLUME 91.7 FL (78-98); MEAN PLATELET VOLUME 8.1 FL (7.4-10.4); MONOCYTES # (AUTO) 0.7 X10'3 (0-0.9); MONOCYTES % (AUTO) 7.9 % (2-12); NEUTROPHILS # (AUTO) 6.3 X10'3 (1.8-7.7); NEUTROPHILS % (AUTO) 67.4 % (42-75); PLATELET COUNT 326 X10'3 (140-440); RED BLOOD COUNT 4.35 X10'6 (4.20-5.60); RED CELL DISTRIBUTION WIDTH 13.7 % (11.5-14.5); WHITE BLOOD COUNT 9.3 X10'3 (4.5-11.0)
--- NOTE | 2024-06-11 13:29 | RADIOLOGY REPORT ---
DI CHEST,SINGLE VIEW, HISTORY: CP COMPARISON: None None TECHNICAL DATA: 1 view of the chest was obtained. FINDINGS: Lines and tubes: None Cardiomediastinal silhouette: normal Pulmonary vasculature: normal Lung expansion: normal Lung airspace: normal Lung interstitium: normal Pleura: normal Pneumothorax: no Bones: Unremarkable Other: no IMPRESSION: No acute intrathoracic abnormality.
[2024-06-11 13:31] LABS: PROTHROMBIN TIME 10.3 SECONDS (9.0-12.0)
[2024-06-11 13:52] LABS: ALBUMIN 3.7 G/DL (3.4-5.0); BLOOD UREA NITROGEN 9 MG/DL (7-18); BUN/CREATININE RATIO 14.5 (10.0-20.0); CALCIUM 8.8 MG/DL (8.5-10.1); CREATININE 0.62 MG/DL (0.40-0.90); GLUCOSE 125 MG/DL (70-104); POTASSIUM 4.4 MMOL/L (3.5-5.1); PRO BRAIN NATRIURETIC PEPTIDE 313 PG/ML (0-125); SODIUM 141 MMOL/L (135-145); TOTAL CARBON DIOXIDE 26.4 MMOL/L (24-32); eCRCL 83 ML/MIN; eGFR > 90 ML/MIN
[2024-06-11 13:59] LABS: ANION GAP 9 (8-16); CHLORIDE 106 MMOL/L (99-107)
--- NOTE | 2024-06-11 14:03 | Physician Documentation ---
History of Present Illness ~ Chief Complaint: Shortness of Breath Stated Complaint: SOB Time Seen by MD: 12:39 Primary Medical Doctor: Felix Zayas MD Mode of Arrival: EMS, Stretcher [facility] This is a 58 year old female who comes in for evaluation of shortness a breath not accompanied by chest pain, exertional limits in nature that has been getting progressively loss over the last two weeks to the point that even minimal exertion now causes shortness a breath and diaphoresis. History of stents. Additionally reports the dizziness and near syncopal sensation especially with the exertion for the last couple of months also getting progressively worse. Palliated by rest. Did not attempt to treat it. Normally followed by Dr. Smith, last cardiac workup was over a year ago. Also reports productive cough with green sputum. Denies use of tobacco, alcohol or illicit substances Medication Reconciliation Allergies: Coded Allergies: [place] And Derivatives (Verified Allergy, Unknown, 06/11/24) Penicillins (Verified Allergy, Unknown, RASH, HIVES, 06/24/22) ibuprofen (Verified Allergy, Unknown, 06/17/23) prednisone (Verified Adverse Reaction, Intermediate, 06/11/24) Scheduled Amlodipine Besylate/Benazepril (Amlodipine-Benazepril 10-20 Mg), 0.5 TAB PO DAILY, (Reported) Carbidopa/Levodopa (Carbidopa-Levodopa 25-100 Tab), 1 TAB PO TID, (Reported) Ezetimibe (Ezetimibe), 1 TAB PO DAILY, (Reported) Fluoxetine Hcl (Fluoxetine Hcl), 60 MG PO DAILY, (Reported) Lamotrigine (LaMICtal tablet), 1 TAB PO Q12H, (Reported) Meclizine HCl (Meclizine HCl), 1 TAB PO Q8H, (Reported) Pantoprazole Sodium (PROTONIX tablet), 1 TAB PO DAILY, (Reported) Simvastatin (Simvastatin), 1 TAB PO HS, (Reported) Scheduled PRN Trazodone HCl (Trazodone HCl), 1 TAB PO HS PRN for sleep, (Reported) Past Medical History Past Medical History: Angina, Coronary Artery Disease, High Cholesterol, Hypertension, GI Bleed, Anemia, Chronic Pain, Chronic Back Pain, Extremity Fracture, Anxiety, Depression Past Surgical History: angioplasty, cholecystectomy, , gastric bypass, orthopedic surgeries Alcohol Use: Occasionally Drug Use: none Lives with: S/O Lives In: Home Occupation: disabled Review of Systems ROS 10 point review of systems was performed and unless noted above in HPI is negative for acute process/complaint. Physical Exam Vital Signs: Temperature: 99.5, Source: Oral, Heart Rate: 58, Respiratory Rate: 16, BP: 161/77, Pulse Oximetry: 94, Weight: 125.000 Oxygen Flow Rate: 0 Physical Exam GENERAL: Awake, alert, oriented, GCS 15, no apparent distress, non-toxic appearing, answers questions, follows commands appropriately. Examined in bed 16 HEENT: Atraumatic, normocephalic, pupils equal, extraocular muscles intact, sclerae anicteric, mucus membranes moist, oropharynx is clear, no stridor. NECK: supple, full active range of motion, trachea midline, no thyromegaly, no lymphadenopathy, no JVD. CARDIOVASCULAR: regular rate/rhythm, no murmurs/gallops/rubs, Pulses are 2+ in all extremities and symmetric. Capillary refill less than 2 seconds. PULMONARY: Nonlabored, good air movement ,no respiratory distress, speaking in full sentences, coarse breath sounds bilaterally, no wheezing, no ronchi, no rales, no accessory muscle use. GASTROINTESTINAL: Soft, non-tender, non-distended, normal active bowel sounds, no organomegaly, no pulsatile masses, no CVA tenderness. NEUROLOGIC: Lucid with normal mental status. Normal facial symmetry. Moves all extremities symmetrically and with purpose. No truncal ataxia. Speech is fluid without evidence of dysarthria or aphasia, no focal deficits appreciated. MUSCULOSKELETAL: There is full range of motion of all extremities. There is no joint pain or joint swelling or joint erythema. There is no muscle pain or tenderness or swelling. EXTREMITIES: warm, well-perfused, no cyanosis, no clubbing, no edema, no acute deformities. Skin: warm, dry, no rashes or lesions, no jaundice, no petechiae orpurpura. No ecchymosis. PSYCHIATRIC: Normal affect, normal insight, normal concentration. Focused exam: [] Progress Results/Orders Results/Orders Orders - RIK RIVERA DO Culture Blood (06/11/24 12:38) Saline Lock (06/11/24 12:38) Oxygen (06/11/24 12:38) BMP (06/11/24 12:38) PBNP (06/11/24 12:38) Electrocardiogram (06/11/24 ) Chest,Single View (06/11/24 12:38) Monitor (06/11/24 12:38) Hs Troponin I W Calculations (06/11/24 14:38) Hs Troponin I W Calculations (06/11/24 15:38) Completed Orders - RIK RIVERA DO Cbc/Diff (06/11/24 12:38) Lacticsepsis (06/11/24 12:38) Chest,Single View (06/11/24 12:38) Hs Troponin I W Calculations (06/11/24 12:38) Pt Inr (06/11/24 12:38) Vital Signs 06/11/24 06/11/24 12:28 13:19 Temp 99.5 Pulse 58 Resp 22 16 B/P (MAP) 161/77 Pulse Ox 94 O2 Flow Rate 0 Laboratory Tests Test 06/11/24 12:45 White Blood Count 9.3 Red Blood Count 4.35 Hemoglobin 13.1 Hematocrit 39.9 Mean Corpuscular Volume 91.7 Mean Corpuscular Hemoglobin 30.2 Mean Corpuscular Hemoglobin Concent 33.0 Red Cell Distribution Width 13.7 Platelet Count 326 Mean Platelet Volume 8.1 Neutrophils (%) (Auto) 67.4 Lymphocytes (%) (Auto) 23.3 Monocytes (%) (Auto) 7.9 Eosinophils (%) (Auto) 0.9 Basophils (%) (Auto) 0.5 Neutrophils # (Auto) 6.3 Lymphocytes # (Auto) 2.2 Monocytes # (Auto) 0.7 Eosinophils # (Auto) 0.1 Basophils # (Auto) 0.0 CBC Comment Prothrombin Time 10.3 INR International Normalized Ratio 1.0 Coagulation Comments Sodium Level 141 Potassium Level 4.4 Carbon Dioxide Level 26.4 Blood Urea Nitrogen 9 Creatinine 0.62 Estimated GFR/1.73 m2 > 90 BUN/Creatinine Ratio 14.5 Glucose Level 125 H Lactic Acid Level 1.4 Calcium Level 8.8 Troponin I High Sensitivity 8 Pro-B-Type Natriuretic Peptide 313 H Albumin 3.7 Chemistry Comments Medical Decision Making Findings Facility Status: ED [facility], [facility] process The plan was discussed with the patient, who demonstrates clear understanding of the plan and is in agreement with the plan unless otherwise noted in the chart. All questions have been answered, all concerns were addressed unless otherwise documented. I was available throughout their ED stay for frequent reassessment and questions. Differential Diagnoses (considered and possible or likely): [ACS, COPD, CHF, pneumonia, less likely PE] ??Differential Diagnoses (considered and unlikely, not requiring evaluation currently): [Less likely COVID or influenza] MDM Data Please see HPI for the following: Independent Historians and external Records Review. Historian: [Patient] Independent Historians: ?[EMS, record review] Medication Management: [Reviewed medication list] Social History and determinants: [Reviewed] Please see the body of the note for the following: Any independent int erpretations of ECG, imaging studies. All vitals signs/haemodynamics, ordered tests were independently reviewed and interpreted by myself. Nursing triage complaint and vitals reviewed, additional nursing notes were reviewed as available and I agree unless otherwise noted or documented in contradiction in the chart Vital Signs: Independently reviewed Labs: Independently interpreted Imaging: Independently interpreted Old Medical Records: Independently reviewed, see HPI for relevant summary and information Pulse Oximetry: [97%] interpreted as [normal on room air] by me [Light Bulb Replacer: [Regular Rate, Regular rhythm, no ectopy, NSR] reviewed and interpreted by me] Additionally notably showing: [Hemodynamically stable. Laboratory workup was unremarkable except for minimally elevated pro BNP not meeting criteria for CHF exacerbation. Troponin is negative. Chest x-ray is not notable for acute cardiopulmonary disease on my independent interpretation. Radiology confirms absence of focal infiltrate and pulmonary vascular congestion.] Tests considered but not ordered include: [Echo and stress test can be done on an inpatient basis] Social Determinants of Health Impact: Patient was evaluated in [facility] [place] to healthcare due to below par ratio of patient to medical providers. [] Comorbid Conditions Impacting Present Evaluation and Care/Treatment: [Multiple, see list, including CAD] Management Discussions with other Healthcare Providers: [Hospitalist regarding admission] Treatment and Disposition Medication Management (Given or considered): []. See EMR for details Consideration for Hospitalization/Escalation/Deescalation of Care: Admission for observation has been considered, and appears to be necessary for further workup of her exertional dyspnea and near-syncope which with a very well be ACS equivalents ?ED Course:?[No clinical deterioration] ?Shared decision making:?[] Code status:?FULL Please see the full Electronic Medical Record for full details of nursing documentation, medications list, other records of complete past medical history and conditions, vital signs, laboratory studies, and any radiologic study interpretations by radiologists. Portions of this note were completed using [employer] dictation software and as a result there may exist minor errors in spelling. I have reviewed elements of past family and social history and agree as included in note. Departure Disposition: 09 ADMITTED INPATIENT Impression: Primary Impression: Exertional dyspnea Additional Impressions: Near syncope Diaphoresis Condition: Stable Referrals: NO PRIMARY CARE PROVIDER (PCP) Education Educated: Patient Educated regarding: diagnosis, treatment, prognosis Signature Scribe Signature: No scribe Attestation: This note accurately reflects clinical decisions, work performed by myself, DO MIGUEL Mustafa NICHOLAS M DO June 11, 2024 14:03
[2024-06-11 14:18] LABS: D-DIMER 0.21 MG/L FEU (0-0.50)
[2024-06-11] MEDS ORDERED: magnesium hydroxide 30ml (MOM) UD suspension PO PRN (14:25)
[2024-06-11] MEDS: PERFLUTREN PROTEIN-A MICROSPHR (Optison) 0.22 MG/ML 3ML VIAL IV ONE (14:25)
[2024-06-11] MEDS ORDERED: HYDROcodone/acetaminophen 5mg/325mg tablet PO PRN (14:25)
[2024-06-11] MEDS ORDERED: acetaminophen 325mg tablet PO PRN (14:25)
[2024-06-11] MEDS ORDERED: magnesium sulf-water 4G/100mL 100 ML IV PRN (14:25)
[2024-06-11] MEDS ORDERED: mag hydrox/Alum hydrox/simeth 30ml oral suspension PO PRN (14:25)
[2024-06-11] MEDS ORDERED: magnesium sulf-water 2g/50mL 50 ML IV PRN (14:25)
[2024-06-11] MEDS ORDERED: potassium Cl 20 mEq SR tablet PO PRN ×2 (14:25)
[2024-06-11] MEDS ORDERED: potassium Cl 40MEQ/1/2NS 520ml 520 ML IV PRN (14:25)
[2024-06-11 15:12] LABS: ALANINE AMINOTRANSFERASE 37 U/L (12-78); ALBUMIN/GLOBULIN RATIO 1.3 (1.1-1.5); ALKALINE PHOSPHATASE 183 IU/L (46-116); ASPARTATE AMINO TRANSFERASE 48 U/L (10-37); BILIRUBIN,DIRECT 0.1 MG/DL (0-0.3); BILIRUBIN,TOTAL 0.4 MG/DL (0.1-1.0); TOTAL PROTEIN 6.6 G/DL (6.4-8.2)
--- NOTE | 2024-06-11 15:17 | RADIOLOGY REPORT ---
Procedure: CT CT CHEST Reason for study/Clinical History: fever, sob, chf Comparison Study: NoneNone available at time of dictation. Exam Date: 06/11/2024 02:55 PM TECHNIQUE: Multidetector CT of the chest was performed from the lung apices to the upper abdomen with out the use of intravenous contract. Axial, coronal and sagittal multiplanar reformats were performed . Radiation Dose Information: CT Dose: CTDI volume is 18 mGy. Dose-length product is 571 mGy*cm The dose indicators for CT are the volume Computed Tomography (CT) Dose Index (CTDIvol) and the Dose Length Product (DLP), and are measured in units of mGy and mGy-cm, respectively. These indicators are not patient dose, but values generated from the CT scanner acquisition factors. The report includes radiation exposure data for exposures received during this examination. FINDINGS: Lower neck: Normal thyroid. Lungs: No focal consolidation, pleural effusion or pneumothorax. Heart/Vascular Structures: Heart size enlarged. No pericardial effusion. Coronary artery calcificatio n is present. Lymph Nodes: No adenopathy Pleura: No pleural effusion or significant pneumothorax. Musculoskeletal: No acute osseous abnormality. Soft tissues: Normal. Upper abdomen: Limited portions of the upper abdomen are unremarkable except for postsurgical changes in the upper stomach.. IMPRESSION: 1. No signs of malignancy or acute cardiopulmonary pathology. 2. Signs of chronic hypertensive atherosclerotic cardiovascular disease Radiation optimization: All CT scans at this facility use at least one of these dose optimization farrah hniques: automated exposure control mA and/or kV adjustment per patient size (includes targeted exam s where dose is matched to clinical indication) or iterative reconstruction.
[2024-06-11 15:37] VITALS: BP 153/63; PULSE 55; RESP 15; TEMP 97.7; O2SAT 92
--- NOTE | 2024-06-11 15:47 | HISTORY AND PHYSICAL ---
History & Physical Providers to CC ~ History of Present Illness Reason for Admit\Complaint: angina History of Present Illness Jodie Locke is a 58-year-old female with a past medical history of CAD s/p cardiac stent (2004), diastolic heart failure, hypertension, hyperlipidemia, class III obesity, gastric bypass (2003) who presented to the ED with chief complaint of progressively worsening exertional shortness of breath x 2 weeks with associated symptoms of dizziness, headache followed by intermittent episode of near-syncope x 2 months. Patient denies loss of consciousness, prior CVA, cardiac arrhythmia, DVT/PE, or GIB. Patient reports productive cough with green sputum but denies chest pain at rest, palpitations, abdominal pain, n/v/d, fever, chills. Given significant past medical history combined with presentation, patient is to be admitted for further workups and treatment. Allergies: Coded Allergies: Chester And Derivatives (Verified Allergy, Unknown, 06/11/24) Penicillins (Verified Allergy, Unknown, RASH, HIVES, 06/24/22) ibuprofen (Verified Allergy, Unknown, 06/17/23) aspirin (Verified Adverse Reaction, Severe, GI Bleed, 06/11/24) no asa post gastric bypass prednisone (Verified Adverse Reaction, Intermediate, 06/11/24) Home Medications Home Medications Active Reported Amlodipine-Benazepril 10-20 Mg (Amlodipine/Benazepril HCl) 1 Each Capsule 0.5 Tab PO DAILY Carbidopa-Levodopa 25-100 Tab (Carbidopa/Levodopa) 25 Mg-100 Mg Tablet 1 Tab PO TID Ezetimibe 10 Mg Tablet 1 Tab PO DAILY Simvastatin 40 Mg Tablet 1 Tab PO HS Meclizine HCl 25 Mg Tablet 1 Tab PO Q8H Trazodone HCl 50 Mg Tablet 1 Tab PO HS PRN Fluoxetine Hcl 40 Mg Capsule 60 Mg PO DAILY PROTONIX tablet (Pantoprazole Sodium) 40 Mg Tablet.dr 1 Tab PO DAILY 30 Days LaMICtal tablet (Lamotrigine) 100 Mg Tablet 1 Tab PO Q12H Past Medical History Past Medical History CAD s/p stent (2004) Chronic diastolic heart failure Hypertension Hyperlipidemia Class III obesity Past Surgical History Surgical History Comment Gastric bypass (2003) Cholecystectomy Past Social History Social History Comment Alcohol: Denies Tobacco: Former smoker, quit 3 years ago, 10 pack year history Illicit drug use: Denies Living situation: Lives at home with family ROS ROS Other than positives in HPI, all 14 review of systems are negative Exam Vitals: Vital Signs Date Time Temp Pulse Resp B/P (MAP) Pulse Ox O2 Delivery O2 Flow Rate FiO2 06/11/24 13:19 16 06/11/24 12:28 99.5 58 94 0 General: A&Ox 3, NAD, morbidly obese HEENT: Normocephalic, PERRLA Neck: Supple, trachea midline, no JVD Chest: Clear to auscultation bilaterally Cardiovascular: RRR, S1&S2 Abdomen: Soft and nontender Extremities: No cyanosis/clubbing/or edema Central Nervous System: CN II-XII intact, no focal deficits Musculoskeletal: No paraspinal muscle tenderness, no muscle spasm Skin: Warm and intact Diagnostic Data Last Recorded Lab Results: 06/11/24 1245 06/11/24 1245 Diagnostic Data: Laboratory Tests Test 06/11/24 12:45 Prothrombin Time 10.3 SECONDS (9.0-12.0) INR International Normalized Ratio 1.0 INR D-Dimer 0.21 MG/L FEU (0-0.50) D-Dimer Comment Coagulation Comments Additional Plan Came in for complaints of progressively worsening exertional shortness of breath x 2 weeks with associated symptoms of cough, dizziness, headache followed by intermittent episode of near-syncope x 2 months. 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 Advance care planning: Discussed with patient the importance of advance care planning in case of emergent situation. We discussed various resuscitative measures/ ACP with the patient at the time of admission. Patient voiced understanding and patient has decided on a full code status. Date of Service: June 11, 2024 Billing Provider: CRISTIANO RUFF Common Visit Codes: [id number] INP/OBS CARE (HIGH) Secondary Visit Codes: 78908-[id number] CARE PLAN 30 MINUTES CRISTIANO RUFF June 11, 2024 15:47
[2024-06-11] MEDS ORDERED: aminophylline 500mg/20ml vial IV PRN (15:55)
[2024-06-11] MEDS ORDERED: metoprolol tartrate 1mg/ml inj IV PRN (15:55)
[2024-06-11] MEDS ORDERED: nitroGLYCERIN 0.4mg SUBLingual tab SL PRN (15:55)
[2024-06-11 16:00] VITALS: RESP 15; O2SAT 92
[2024-06-11] MEDS: aspirin 81mg, enteric-coated 1 TAB TABLET.DR PO ONE (16:05)
[2024-06-11] MEDS ORDERED: hydrALAZINE 20mg/ml inj. IV PRN (16:15)
--- NOTE | 2024-06-11 17:11 | RADIOLOGY REPORT ---
CT brain without contrast CLINICAL INDICATION: dizziness, near-syncope FINDINGS: The study was performed in a multidetector scanner. This study performed taking axial image s from the skull base up to the vertex. Both brain and bone windows are photographed. Dose lowering techniques have been used including automated exposure control and adjustment of mA and /or KV according to patient size. Bifrontal cortical atrophy. No intraparenchymal hemorrhage or edema. No hydrocephalus. No midline shift. No extra-axial fluid collections. On bone windows no calvarial lesions. Paranasal sinuses clear IMPRESSION: 1. No acute intracranial pathology. Bifrontal cortical atrophy Computed Tomographic Radiation Dosimetry Report: Total CTDI vol = 52 mGy Total DLP = 896 mGy-cm All C T scans at this medical facility are performed using dose modulation techniques as appropriate to a p erformed exam including the following: Automated exposure control was utilized; adjustment of the MA and/or KvP according to patient size; and use of iterative reconstruction technique.
[2024-06-11] MEDS: acetaminophen 325mg tablet PO PRN (17:17)
[2024-06-11] MEDS: losartan 50mg tablet PO ONE (17:19)
[2024-06-11] MEDS: amLODIPine 5mg tablet PO ONE (17:19)
[2024-06-11 17:42] LABS: HEMOGLOBIN A1C 6.3 % (4.5-6.2)
--- NOTE | 2024-06-11 17:44 | VASCULAR REPORT ---
CAROTID DOPPLER ULTRASOUND HISTORY: Dizziness COMPARISON: None TECHNIQUE: Real time ruiz scale, color Doppler, and spectral duplex images are obtained through the c arotid and vertebral arteries. Findings: Peak systolic velocity right internal carotid artery is 105 cm/s and right common carotid artery is 1 03 cm/s. Ratio is 1.07. Antegrade flow noted in right vertebral artery. No significant atheroscleroti c plaque noted within the right carotid arterial system. Peak systolic velocity left internal carotid artery is 96 cm/s and left common carotid artery is 80 c m/s. Ratio is 1.2. Antegrade flow noted in left vertebral artery. No significant atherosclerotic plaq ue noted within the left carotid arterial system. Impression: 1. No evidence of hemodynamically significant stenosis within the bilateral carotid arterial systems. 2. Antegrade flow within bilateral vertebral arteries. Stenosis ICA/CCA PSV ratio PSV 0-40% < 1.5 25-110 cm/s 40-59% < 1.8 > 120 cm/s 60-79% 1.8-3.7 > 130 c m/s 80-99% > 3.7 < 25 cm/s, > 250 cm/s
[2024-06-11 18:00] VITALS: BP 132/54; PULSE 54; RESP 15; TEMP 97.2; O2SAT 96
[2024-06-11] MEDS ORDERED: LAMO200T10 PO (18:12)
--- NOTE | 2024-06-11 19:25 | CARDIOLOGY REPORT ---
APPROVED REPORT EXAM: Comprehensive 2D, Doppler, and color-flow Echocardiogram. Patient Location: [address] Blood Pressure: 153/63 mmHg Heart Rate: 57 bpm Rhythm: SINUS BRADYCARDIA Indications CONGESTIVE HEART FAILURE CAD HYPERLIPIDEMIA HYPERTENSION SHORTNESS OF BREATH Sales And Service Agent: Yamile Smith MD Previous echo: 05/04/22 CVC (EF 60-65%, trace TR, trace MR) 2D Dimensions IVSd 1.1 (0.7-1.1cm) LVDd 5.1 cm PWd 1.2 (0.7-1.1cm) IVSs 1.2 (0.8-1.2cm) LVDs 3.3 (2.5-4.0cm) PWs 1.1 (0.8-1.2cm) LVOT Diameter 2.05 (1.8-2.4cm) LVEF(%) 69.0 (>50%) IVC 15.15 mmFS (%) 39.0 % SV 85.3 ml CO 4.8 L/min M-Mode Dimensions Left Atrium(MM) 4.20 (2.5-4.0cm) Aortic Root 2.76 (2.2-3.7cm) Aortic Cusp Exc 1.73 (1.5-2.0cm) MV EPSS 0.9 (<0.5cm) Aortic Valve AoV Peak Paulino. 188.5 cm/s AoV VTI 39.4 cm AO Peak GR. 14.2 mmHg AO Mean GR. 7 mmHg LVOT VTI 28.09 cm LVOT Peak Paulino. 123.7 cm/s RAFAEL(VTI)/BSA 2.35 cm2/m2 RAFAEL (VTI) 2.35 cm2 Mitral Valve MV E Velocity 67.7 cm/s MV Peak Gr. 4 mmHg MV DECEL TIME 280 ms MV A Velocity 94.7 cm/s MV PHT 52 ms E/A Ratio 0.7 MVA (PHT) 4.23 cm2 MV ARtm390.3 cm/s TDI Medial E' P. V 7.20 cm/s E/Medial E' 9.4 Pulmonary Vein S1 Velocity 45.4 cm/s D2 Velocity 29.9 cm/s PVa Ssczffij19.3 cm/s PVa [id number] msec LEFT VENTRICLE Normal LV size and wall thickness. Overall systolic function is normal. LVEF is 65-70%. RIGHT VENTRICLE RV size and function appear normal. ATRIA Left atrium is mildly dilated. AORTIC VALVE Probably trileaflet AV is not well visualized but appears grossly normal without stenosis or insuffic iency. MITRAL VALVE Mild MV annular calcification without stenosis. Trace regurgitation. TRICUSPID VALVE TV appears structurally normal with trace regurgitation. PULMONIC VALVE Normal PV without stenosis, physiologic insufficiency. GREAT VESSELS Aortic root is normal in size. The IVC is normal in size and collapses greater than 50% with inspirat ion. PERICARDIUM Trivial circumferential pericardial effusion and prominent epicardial fat pad. No evidence of hemodyn amic compromise. Conclusion Normal LV size and wall thickness. Overall systolic function is normal. LVEF is 65-70%. RV size and function appear normal. Left atrium is mildly dilated. Probably trileaflet AV is not well visualized but appears grossly normal without stenosis or insuffic iency. Mild MV annular calcification without stenosis. Trace regurgitation. TV appears structurally normal with trace regurgitation. Trivial circumferential pericardial effusion and prominent epicardial fat pad. No evidence of hemodyn amic compromise.
[2024-06-11] MEDS: K and/or MAG REPLACEMENT MC SCH (20:00)
[2024-06-11] MEDS: docusate sod 100mg capsule PO SCH (20:00)
[2024-06-11] MEDS: heparin, porcine 5000 units/ml vial SQ SCH (20:24)
[2024-06-11] MEDS: atorvastatin 20mg tablet PO SCH (20:24)
[2024-06-11] MEDS ORDERED: traZODone 50mg tablet PO PRN (21:05)
[2024-06-11 22:00] VITALS: BP 133/44; PULSE 53; RESP 16; TEMP 97.9; O2SAT 94
[2024-06-11] MEDS: LORazepam 1 MG tablet PO ONE (22:08)
[2024-06-12] VITALS (13 sets, daily range): BP systolic 103–128; BP diastolic 42–57; PULSE 54–78; RESP 14–16; TEMP 97.3–98.4; O2SAT 92–95
[2024-06-12] MEDS: ondansetron/PF 4mg/2ml inj IV PRN (05:38)
[2024-06-12 06:17] LABS: ALANINE AMINOTRANSFERASE 34 U/L (12-78); ALBUMIN 3.2 G/DL (3.4-5.0); ALBUMIN/GLOBULIN RATIO 1.2 (1.1-1.5); ALKALINE PHOSPHATASE 173 IU/L (46-116); ANION GAP 9 (8-16); ASPARTATE AMINO TRANSFERASE 36 U/L (10-37); BILIRUBIN,TOTAL 0.6 MG/DL (0.1-1.0); BLOOD UREA NITROGEN 12 MG/DL (7-18); BUN/CREATININE RATIO 18.5 (10.0-20.0); CALCIUM 8.9 MG/DL (8.5-10.1); CHLORIDE 104 MMOL/L (99-107); CREATININE 0.65 MG/DL (0.40-0.90); GLUCOSE 129 MG/DL (70-104); MAGNESIUM 2.3 MG/DL (1.5-2.4); POTASSIUM 4.2 MMOL/L (3.5-5.1); SODIUM 137 MMOL/L (135-145); TOTAL CARBON DIOXIDE 24.1 MMOL/L (24-32); TOTAL PROTEIN 5.8 G/DL (6.4-8.2); eCRCL 79 ML/MIN; eGFR > 90 ML/MIN
--- NOTE | 2024-06-12 06:21 | ELECTROCARDIOGRAPH REPORT ---
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 Darryl Quevedo Measurements Intervals [place] Rate: 57 P: -21 VT: 187 QRS: 72 QRSD: 115 T: 63 QT: 478 QTc: 466 Interpretive Statements Sinus bradycardia Nonspecific intraventricular conduction delay Consider anterior infarct Baseline wander in lead(s) V6 Electronically Signed On 06-13-2024 15:44:[address] Darryl Quevedo Please click the below link to view image of tracing.
[2024-06-12] MEDS: FLUoxetine 20mg capsule PO SCH (07:23)
[2024-06-12] MEDS: pantoprazole 40mg Tablet.DR PO SCH (07:24)
[2024-06-12] MEDS: carbidoba-levodopa 25-100mg tablet PO SCH (07:24)
[2024-06-12] MEDS: losartan 50mg tablet PO SCH (07:25)
[2024-06-12] MEDS: lamoTRIgine 100mg tablet PO SCH (07:26)
[2024-06-12] MEDS: amLODIPine 5mg tablet PO SCH (07:27)
[2024-06-12 07:50] LABS: BASOPHILS % (AUTO) 0.3 % (0-1); EOSINOPHILS % (AUTO) 0.7 % (0-6); HEMATOCRIT 36.2 % (35.0-45.0); HEMOGLOBIN 12.2 g/dl (12.0-16.0); LYMPHOCYTES # (AUTO) 1.6 X10'3 (1.1-4.8); MEAN CORPUSCULAR HEMOGLOBIN 30.7 PG (27.0-31.0); MEAN CORPUSCULAR HGB CONC 33.6 g/dL (33.0-36.5); MEAN CORPUSCULAR VOLUME 91.3 FL (78-98); MEAN PLATELET VOLUME 7.8 FL (7.4-10.4); MONOCYTES # (AUTO) 0.5 X10'3 (0-0.9); NEUTROPHILS # (AUTO) 4.3 X10'3 (1.8-7.7); PLATELET COUNT 284 X10'3 (140-440); RED BLOOD COUNT 3.97 X10'6 (4.20-5.60); RED CELL DISTRIBUTION WIDTH 13.4 % (11.5-14.5); WHITE BLOOD COUNT 6.5 X10'3 (4.5-11.0)
[2024-06-12] MEDS: MULTIVIT-MIN/FERROUS GLUCONATE 9 MG/15 ML LIQUID PO SCH (08:00)
[2024-06-12] MEDS: aspirin 81mg, enteric-coated 1 TAB TABLET.DR PO SCH (08:00)
[2024-06-12] MEDS: EMPAGLIFLOZIN 10 MG TABLET PO SCH (08:00)
[2024-06-12] MEDS: regadenoson 0.4mg/5ml syringe IV PRN (10:31)
--- NOTE | 2024-06-12 11:22 | ELECTROCARDIOGRAPH REPORT ---
[facility] Test Date: 2024-06-11 Test Time: 17:09:30 Pat Name: ANSLEY RODRÍGUEZ Department: ORTHO/NEURO Room: ORTHO [facility] Gender: F House Carpenter: : 1965 Requested By: CRISTIANO RUFF Order Number: [id number] Reading MD: Dr. KYLE Vazquez Measurements Intervals [place] Rate: 56 P: 7 SC: 201 QRS: 83 QRSD: 112 T: 57 QT: 498 QTc: 481 Interpretive Statements Sinus bradycardia Borderline intraventricular conduction delay Electronically Signed On 06-12-2024 16:35:[address] KYLE Vazquez Please click the below link to view image of tracing.
[2024-06-12] MEDS: HYDROcodone/acetaminophen 10/325mg tab PO PRN (12:03)
--- NOTE | 2024-06-12 13:08 | RADIOLOGY REPORT ---
EXAM: NM NM JOSE SCAN History: stable angina, cad s/p cardiac stent, HEART 5 Comparison Study: None TECHNIQUE: Resting myocardial perfusion imaging was performed approximately 30 minutes following the injection of 8.53 mCi of Tc-99m sestamibi. Peak pharmacologic stress, the patient was injected with 3 4.07 mCi of Tc-99m sestamibi. Gated post stress images were acquired in the supine and prone position s approximately 30 minutes after stress and left ventricular ejection fraction (LVEF) was calculated. Findings: The overall quality of the study is adequate. The left ventricular cavity is noted to be normal. There is no evidence of abnormal lung activity. Additionally, the right ventricle appears normal. Myocardial perfusion images demonstrate a small size, mild intensity perfusion defect in the distal a nterior wall which is reversible. Gated imaging reveals normal thickening and wall motion with a calculated LVEF of 74 % with end-diast olic volume of 62 mL at stress. Impression: 1. Small size, mild intensity reversible perfusion defect in the distal anterior wall favored ischemi c. 2. Overall gated left ventricular systolic function was normal with calculated LVEF of 74 % at stress . 3. No left ventricular dilatation.
[2024-06-12 13:10] LABS: CHOLESTEROL 151 MG/DL (0-200); HDL CHOLESTEROL 75 MG/DL (35-60); LDL CHOLESTEROL 54 MG/DL (50-100); TRIGLYCERIDES 135 MG/DL (20-135)
[2024-06-12] MEDS: ondansetron 4mg rapidly disintigrating tab PO ONE (19:05)
--- NOTE | 2024-06-12 20:00 | PROGRESS NOTE- Residence ---
Progress Note - Resident Providers to CC Resident Creating Document: SHANTA DEUTSCH, RES ~ Antibiotic Timeout Antibiotic Ordered?: No Subjective Patient was seen and examined at the bedside. Patient had an episode of suicide ideation last night and is currently with a sitter and 1799 hold.No complaints of chest pain. Lexiscan done today. Small size, mild intensity reversible perfusion defect in the distal anterior wall favored ischemic. Patient needs cardiology consultation tomorrow for possible cardiac catheterization. Objective Vital Signs Date Time Temp Pulse Resp B/P (MAP) Pulse Ox O2 Delivery O2 Flow Rate FiO2 06/12/24 18:30 74 06/12/24 18:00 98.0 16 126/42 (70) 95 Room Air 06/12/24 10:23 0.0 Result Diagram: 06/12/24 0700 06/12/24 0513 General: A&Ox 3, NAD, morbidly obese HEENT: Normocephalic, PERRLA Neck: Supple, trachea midline, no JVD Chest: Clear to auscultation bilaterally Cardiovascular: RRR, S1&S2 Abdomen: Soft and nontender Extremities: No cyanosis/clubbing/or edema Central Nervous System: CN II-XII intact, no focal deficits Musculoskeletal: No paraspinal muscle tenderness, no muscle spasm Skin: Warm and intact Coagulation Studies Laboratory Tests Test 06/11/24 12:45 Prothrombin Time 10.3 SECONDS (9.0-12.0) INR International Normalized Ratio 1.0 INR D-Dimer 0.21 MG/L FEU (0-0.50) D-Dimer Comment Coagulation Comments Assessment Assessment Jodie Locke is a 58-year-old female with a past medical history of CAD s/p cardiac stent (2004), diastolic heart failure, hypertension, hyperlipidemia, class III obesity, gastric bypass (2003) who presented to the ED with chief complaint of progressively worsening exertional shortness of breath x 2 weeks with associated symptoms of dizziness, headache followed by intermittent episode of near-syncope x 2 months. Patient denies loss of consciousness, prior CVA, cardiac arrhythmia, DVT/PE, or GIB. Patient reports productive cough with green sputum but denies chest pain at rest, palpitations, abdominal pain, n/v/d, fever, chills. Given significant past medical history combined with presentation, patient is to be admitted for further workups and treatment. 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 Consult Cardiology in the a.m. for possible cardiac catheterization. -NPO after midnight -patient also had an episode of suicide ideation last night and is currently under 1799 hold. She will be evaluated by [facility] once medically cleared. # Class III obesity # Hx gastric bypass -start multivitamin/iron # Hx of alcoholism, sober x 3 yrs # Hx of tobacco abuse, quit x 3 yrs DVT/VTE Prophylaxis: heparin Code Status: Full Code Date of Service: June 12, 2024 Billing Provider: UMU SOARES MD, DEEPIKA BANDI, RES June 12, 2024 20:00
[2024-06-12] MEDS: nystatin 15 GM powder TP SCH (20:54)
[2024-06-13] VITALS (7 sets, daily range): BP systolic 106–144; BP diastolic 48–70; PULSE 56–67; RESP 13–18; TEMP 96.4–98.3; O2SAT 92–98
[2024-06-13 04:23] LABS: BASOPHILS % (AUTO) 0.3 % (0-1); EOSINOPHILS # (AUTO) 0.1 X10'3 (0-0.9); EOSINOPHILS % (AUTO) 1.1 % (0-6); HEMATOCRIT 35.1 % (35.0-45.0); HEMOGLOBIN 11.5 g/dl (12.0-16.0); LYMPHOCYTES # (AUTO) 1.9 X10'3 (1.1-4.8); LYMPHOCYTES % (AUTO) 31.1 % (21-51); MEAN CORPUSCULAR HEMOGLOBIN 30.1 PG (27.0-31.0); MEAN CORPUSCULAR HGB CONC 32.9 g/dL (33.0-36.5); MEAN CORPUSCULAR VOLUME 91.5 FL (78-98); MEAN PLATELET VOLUME 7.5 FL (7.4-10.4); MONOCYTES # (AUTO) 0.6 X10'3 (0-0.9); MONOCYTES % (AUTO) 9.2 % (2-12); NEUTROPHILS # (AUTO) 3.6 X10'3 (1.8-7.7); NEUTROPHILS % (AUTO) 58.3 % (42-75); PLATELET COUNT 263 X10'3 (140-440); RED BLOOD COUNT 3.84 X10'6 (4.20-5.60); RED CELL DISTRIBUTION WIDTH 13.6 % (11.5-14.5); WHITE BLOOD COUNT 6.1 X10'3 (4.5-11.0)
[2024-06-13 04:38] LABS: ALANINE AMINOTRANSFERASE 28 U/L (12-78); ALBUMIN 3.2 G/DL (3.4-5.0); ALBUMIN/GLOBULIN RATIO 1.3 (1.1-1.5); ALKALINE PHOSPHATASE 161 IU/L (46-116); ANION GAP 4 (8-16); ASPARTATE AMINO TRANSFERASE 29 U/L (10-37); BILIRUBIN,TOTAL 0.4 MG/DL (0.1-1.0); BLOOD UREA NITROGEN 14 MG/DL (7-18); BUN/CREATININE RATIO 20.3 (10.0-20.0); CALCIUM 8.9 MG/DL (8.5-10.1); CHLORIDE 108 MMOL/L (99-107); CREATININE 0.69 MG/DL (0.40-0.90); GLUCOSE 118 MG/DL (70-104); MAGNESIUM 2.1 MG/DL (1.5-2.4); POTASSIUM 4.5 MMOL/L (3.5-5.1); SODIUM 143 MMOL/L (135-145); TOTAL CARBON DIOXIDE 30.7 MMOL/L (24-32); TOTAL PROTEIN 5.6 G/DL (6.4-8.2); eCRCL 75 ML/MIN; eGFR 87 ML/MIN
[2024-06-13] MEDS: ondansetron 4mg rapidly disintigrating tab PO ONE (05:55)
[2024-06-13 09:11] LABS: HBSAG SCREEN Negative (Negative); HEP B CORE AB, IGM Negative (Negative); HEP B CORE AB, TOT Negative (Negative)
--- NOTE | 2024-06-13 14:10 | PROGRESS NOTE- Residence ---
Progress Note - Resident Providers to CC Resident Creating Document: RIAZ BARR CC: UMU SOARES MD ~ Antibiotic Timeout Antibiotic Ordered?: No Subjective Patient was seen and examined at the bedside. Patient reports that she continues to have discomfort in epigastric area, as well as nausea and episodes of blurry/double vision. She states that she does not have a suicide plan, however, she states that she feels like she does not care if she lives or dies. She has been intentionally gaining weight hoping she will get a stroke or heart attack. She reports she is willing to talk to [facility] for mental health evaluation and she is willing to pursue treatment. Objective Vital Signs Date Time Temp Pulse Resp B/P (MAP) Pulse Ox O2 Delivery O2 Flow Rate FiO2 06/13/24 10:00 98.0 60 16 135/56 (82) 96 Room Air 06/13/24 08:30 0.0 Result Diagram: 06/13/2440606/13/24406 General: Obese habitus, awake, alert oriented to place, time, and person HEENT: No pallor present, no icterus, moist mucous membranes Neck: No masses and tenderness Resp: Unlabored. Lungs clear to auscultation bilaterally. Heart: Regular Rate and rhythm, normal S1 and S2 without murmur, rub or gallop Abdomen: Soft and non tender no organomegaly, no guarding and rigidity, bowel sounds present Neuro: No weakness in the upper and lower limb muscles, power of the muscles 5/5 bilateral upper and lower muscles, knee reflex present bilaterally. Cranial nerves intact Extremities: No cyanosis,clubbing or edema Skin: Warm and Dry. No lesions Coagulation Studies Laboratory Tests Test 06/11/24 12:45 Prothrombin Time 10.3 SECONDS (9.0-12.0) INR International Normalized Ratio 1.0 INR D-Dimer 0.21 MG/L FEU (0-0.50) D-Dimer Comment Coagulation Comments Assessment Assessment Patient is a 58-year-old female with a past medical history of CAD s/p cardiac stent (2004), diastolic heart failure, hypertension, hyperlipidemia, class III obesity, gastric bypass (2003) who presented to the ED with chief complaint of progressively worsening exertional shortness of breath x 2 weeks with associated symptoms of dizziness, headache followed by intermittent episode of near-syncope x 2 months. She is currently admitted for evaluation and management of stable angina for which she underwent Lexiscan which was positive, she is currently awaiting Cardiology consultation. In addition, she was placed on 1799 due to suicidal ideation and is awaiting medical clearance for [facility] evaluation. Plan Plan Stable angina CAD s/p stent (2004) Chronic diastolic heart failure HLD HTN Prediabetes A1c: 6.3, LDL: 54 Negative trop series, HEART score 5; CT chest shows signs of atherosclerotic cardiovascular disease, negative head CT; EKG sinus idalmis at 57bpm, no ischemic changes Lexiscan showed mild reversible perfusion defect suggestive of ischemia. Consult Cardiology in the a.m. for possible cardiac catheterization. Echocardiogram showed Normal LV size and wall thickness. Overall systolic function is normal. LVEF is 65-70%. RV size and function appear normal. Dr. Alfredo Smith consulted today, pending further recommendations Continue baby aspirin, atorvastatin 40 mg daily, Jardiance 10 mg, losartan 50 mg Nitroglycerin p.r.n. Suicidal ideation Anxiety/depression Hx of alcoholism, sober x 3 yrs Hx of tobacco abuse, quit x 3 yrs Insomnia Parkinson's disease Currently under 1799 hold She will be evaluated by [facility] once medically cleared. Continue home fluoxetine, lamotrigine Continue carbidopa levodopa Continue trazodone q.h.s. Class III obesity Hx gastric bypass Continue multivitamin/iron DVT/VTE Prophylaxis: heparin Code Status: Full Code Nutrition: Heart healthy diet PT: Ordered Prognosis: Guarded Disposition: Continue care in PCU with tele monitoring. Continue 179 and sitter. Pending cardiology evaluation Riaz Rodriguez MD Internal Medicine Resident PGY-1 Date of Service: June 13, 2024 Billing Provider: UMU SOARES MD, LEONARDO LUIS June 13, 2024 14:10
--- NOTE | 2024-06-13 15:46 | CONSULTATION REPORT ---
History of Present Illness Providers to CC CC: LIANE SMITH MD ~ Reason for Admit\\Admit Dx: Cardiology Consultation Refering MD: Felix Zayas MD History of Present Illness 58-year-old female with a past medical history of CAD s/p cardiac stent (2004), diastolic heart failure, hypertension, hyperlipidemia, class III obesity, gastric bypass (2003) Parkinson's Disease. She presented to the ED with chief complaint of progressively worsening exertional shortness of breath x 2 weeks with associated symptoms of dizziness, headache followed by intermittent episode of near-syncope x 2 months. She admits to one episode of chest discomfort, lasting 4-5 minutes on the afternoon of 06/12. She exhibited suicidal ideation shortly after admission, she has a bedside sitter. She had a Lexiscan nuclear stress test performed which revealed a small size, mild intensity, reversible defect in the distal anterior wall. She denies chest pain/pressure, SOB, or other symptoms of ischemia at this time. Allergies: Coded Allergies: [place] And Derivatives (Verified Allergy, Unknown, 06/11/24) Penicillins (Verified Allergy, Unknown, RASH, HIVES, 06/24/22) ibuprofen (Verified Allergy, Unknown, 06/17/23) aspirin (Verified Adverse Reaction, Severe, GI Bleed, 06/11/24) no asa post gastric bypass prednisone (Verified Adverse Reaction, Intermediate, 06/11/24) Active prescriptions Cardiac meds: Jardiance 10mg QD. Amlodipine 5mg QD. Losartan 50mg QD. ASA 81mg QD. Atorvastatin 40mg QD. Hydralazine 5mg IV PRN HTN. SL NTG 0.4mg PRN CP. Heparin SQ for DVT prophylaxis. Home Medications Home Medications Active Reported Lamotrigine 200 Mg Tablet 1 Tab PO DAILY 30 Days Carbidopa-Levodopa 25-100 Tab (Carbidopa/Levodopa) 25 Mg-100 Mg Tablet 1 Tab PO TID Ezetimibe 10 Mg Tablet 1 Tab PO DAILY Simvastatin 40 Mg Tablet 1 Tab PO HS Meclizine HCl 25 Mg Tablet 1 Tab PO Q8H Trazodone HCl 50 Mg Tablet 1 Tab PO HS PRN Fluoxetine Hcl 40 Mg Capsule 80 Mg PO DAILY PROTONIX tablet (Pantoprazole Sodium) 40 Mg Tablet.dr 1 Tab PO DAILY 30 Days Past Medical History Medical History Comment CAD s/p stent (2004) Chronic diastolic heart failure Hypertension Hyperlipidemia Class III obesity Parkinson's Disease Past Surgical History Surgical History Comment Gastric bypass (2003) Cholecystectomy Past Family History Family History Comment Non-contributory Past Social History Social History Comment 10 p/y smoking history, quit 3 years ago. Denies illicit drugs and alcohol. Lives at home with family. Physical Exam Last Vital Signs Recorded: Temperature: 98.0, Source: Oral, Heart Rate: 60, Respiratory Rate: 16, BP: 135/56, Pulse Oximetry: 96, Weight: 125.000 General Appearance: alert, no apparent distress, obese EENT: PERRL/EOMI Neck: normal inspection Respiratory: lungs clear, no respiratory distress Chest: no accessory muscle use Cardiovascular: normal peripheral pulses Peripheral Pulses: 2+ radial (R), 2+ radial (L), 2+ dorsalis pedis (R), 2+ dorsalis pedis (L) Gastrointestinal: normal palpation, non-tender Back: no CVA tenderness Extremities: normal range of motion, no edema Neurologic: oriented x4, memory intact Neurologic Parkinsonian tremor noted in L hand Skin: normal color, warm/dry Lymphatic: no adenopathy Review of Systems All Other Systems at this time: Reviewed and Negative ROS ROS reviewed, negative except that which is specified in HPI. Results EKG EKG Sinus idalmis, 56bpm. IVCD. 1*AVB Echocardiogram Echocardiogram TTE: Normal LV size and wall thickness. Overall systolic function is normal. LVEF is 65-70%. RV size and function appear normal. Left atrium is mildly dilated. Probably trileaflet AV is not well visualized but appears grossly normal without stenosis or insufficiency. Mild MV annular calcification without stenosis. Trace regurgitation. TV appears structurally normal with trace regurgitation. Trivial circumferential pericardial effusion and prominent epicardial fat pad. No evidence of hemodynamic compromise. Cardiac Stress Test Cardiac Stress Test 1. Small size, mild intensity reversible perfusion defect in the distal anterior wall favored ischemic. 2. Overall gated left ventricular systolic function was normal with calculated LVEF of 74 % at stress. 3. No left ventricular dilatation. X-ray X-ray CXR: No acute intrathoracic abnormality. Diagram Lab Result Diagram: 06/13/2440606/13/24406 Assessment/Plan Additional Plan 58-year-old female with a past medical history of CAD s/p cardiac stent (2004), diastolic heart failure, hypertension, hyperlipidemia, class III obesity, gastric bypass (2003) Parkinson's Disease admitted for multiple symptoms, including shortness of breath and chest pain. Stable Angina She described one episode of chest discomfort which lasted 4-5 minutes. Lexiscan revealed a "Small size, mild intensity reversible perfusion defect in the distal anterior wall favored ischemic". HS troponin 12ng/L. She does not exhibit chest discomfort or SOB at time of exam. Stress images reviewed by Dr. Rich who is opting to treat her medically. The patient will not undergo cardiac catheterization unless her symptoms devolve and worsen. -Continue ASA 81mg QD. -Continue Atorvastatin 40mg QD. -Start Metoprolol Succinate 25mg QD. Chronic Diastolic Heart Failure Pt. shows no signs of acute congestion. TTE reveals LVEF 65-70%, no diastolic dysfunction, no LV or septal hypertrophy. CXR and chest CT unremarkable. -Continue Jardiance 10mg QD. -Continue Losartan 50mg QD. -Start Metoprolol Succinate 25mg QD (angina). -If she demonstrates signs of hypervolemia, start Aldactone 25mg QD. Follow up with Dr. Smith's clinic within 2 weeks of discharge. This plan was discussed with supervising physician Dr. Javi Rich, who is in agreement with the above. Supervising MD Supervising Physician: TASHA Loya [facility] June 13, 2024 15:46
[2024-06-14 04:53] LABS: BASOPHILS % (AUTO) 0.5 % (0-1); EOSINOPHILS # (AUTO) 0.1 X10'3 (0-0.9); EOSINOPHILS % (AUTO) 1.4 % (0-6); HEMOGLOBIN 12.2 g/dl (12.0-16.0); LYMPHOCYTES # (AUTO) 1.5 X10'3 (1.1-4.8); MEAN CORPUSCULAR HEMOGLOBIN 30.4 PG (27.0-31.0); MEAN CORPUSCULAR VOLUME 92.1 FL (78-98); MEAN PLATELET VOLUME 7.6 FL (7.4-10.4); MONOCYTES # (AUTO) 0.6 X10'3 (0-0.9); MONOCYTES % (AUTO) 10.3 % (2-12); NEUTROPHILS # (AUTO) 3.6 X10'3 (1.8-7.7); NEUTROPHILS % (AUTO) 61.8 % (42-75); PLATELET COUNT 275 X10'3 (140-440); RED BLOOD COUNT 4.02 X10'6 (4.20-5.60); RED CELL DISTRIBUTION WIDTH 13.7 % (11.5-14.5); WHITE BLOOD COUNT 5.8 X10'3 (4.5-11.0)
[2024-06-14 05:11] LABS: ALANINE AMINOTRANSFERASE 29 U/L (12-78); ALBUMIN 3.4 G/DL (3.4-5.0); ALBUMIN/GLOBULIN RATIO 1.4 (1.1-1.5); ALKALINE PHOSPHATASE 163 IU/L (46-116); ANION GAP 9 (8-16); ASPARTATE AMINO TRANSFERASE 22 U/L (10-37); BILIRUBIN,TOTAL 0.4 MG/DL (0.1-1.0); BLOOD UREA NITROGEN 9 MG/DL (7-18); CALCIUM 8.8 MG/DL (8.5-10.1); CHLORIDE 105 MMOL/L (99-107); CREATININE 0.69 MG/DL (0.40-0.90); GLUCOSE 124 MG/DL (70-104); MAGNESIUM 1.9 MG/DL (1.5-2.4); POTASSIUM 4.2 MMOL/L (3.5-5.1); SODIUM 143 MMOL/L (135-145); TOTAL CARBON DIOXIDE 28.9 MMOL/L (24-32); TOTAL PROTEIN 5.9 G/DL (6.4-8.2); eCRCL 75 ML/MIN; eGFR 87 ML/MIN
[2024-06-14 07:00] VITALS: BP 167/60; PULSE 66; RESP 16; O2SAT 96
[2024-06-14] MEDS: metoprolol succinate 25mg (24-HOUR) SR. Tablet PO SCH (08:00)
--- NOTE | 2024-06-14 10:35 | PROGRESS NOTE- Residence ---
Progress Note - Resident Providers to CC Resident Creating Document: LINUS DAVISRIAZSVETLANA DE DIOS CC: UMU SOARES MD ~ Antibiotic Timeout Antibiotic Ordered?: No Subjective Patient was seen and examined at the bedside. She states she feels foggy today, and her parkinson's symptoms are acting up. She continues to have episodes of epigastric discomfort, nausea, headaches and dooble vision. Objective Vital Signs Date Time Temp Pulse Resp B/P (MAP) Pulse Ox O2 Delivery O2 Flow Rate FiO2 06/14/24 09:03 14 06/14/24 08:02 66 06/14/24 08:00 Room Air 0.0 06/14/24 07:00 167/60 (95) 96 06/13/24 22:00 98.0 Result Diagram: 06/14/2442706/14/24427 General: Obese habitus, awake, alert oriented to place, time, and person HEENT: No pallor present, no icterus, moist mucous membranes Neck: No masses and tenderness Resp: Unlabored. Lungs clear to auscultation bilaterally. Heart: Regular Rate and rhythm, normal S1 and S2 without murmur, rub or gallop Abdomen: Soft and non tender no organomegaly, no guarding and rigidity, bowel sounds present Neuro: No weakness in the upper and lower limb muscles, power of the muscles 5/5 bilateral upper and lower muscles, knee reflex present bilaterally. Cranial nerves intact Extremities: No cyanosis,clubbing or edema Skin: Warm and Dry. No lesions Coagulation Studies Laboratory Tests Test 06/11/24 12:45 Prothrombin Time 10.3 SECONDS (9.0-12.0) INR International Normalized Ratio 1.0 INR D-Dimer 0.21 MG/L FEU (0-0.50) D-Dimer Comment Coagulation Comments Assessment Assessment Patient is a 58-year-old female with a past medical history of CAD s/p cardiac stent (2004), diastolic heart failure, hypertension, hyperlipidemia, class III obesity, gastric bypass (2003) who presented to the ED with chief complaint of progressively worsening exertional shortness of breath x 2 weeks with associated symptoms of dizziness, headache followed by intermittent episode of near-syncope x 2 months. She is currently admitted for evaluation and management of stable angina for which she underwent Lexiscan which was positive, she is currently awaiting Cardiology consultation. In addition, she was placed on 1798 due to suicidal ideation and is awaiting medical clearance for [facility] evaluation. Plan Plan Stable angina CAD s/p stent (2004) Chronic diastolic heart failure HLD HTN Prediabetes A1c: 6.3, LDL: 54 Negative trop series, HEART score 5; CT chest shows signs of atherosclerotic cardiovascular disease, negative head CT; EKG sinus idalmis at 57bpm, no ischemic changes Lexiscan showed mild reversible perfusion defect suggestive of ischemia. Consult Cardiology in the a.m. for possible cardiac catheterization. Echocardiogram showed Normal LV size and wall thickness. Overall systolic function is normal. LVEF is 65-70%. RV size and function appear normal. Continue baby aspirin, atorvastatin 40 mg daily, Jardiance 10 mg, losartan 50 mg Nitroglycerin p.r.n. Continue medical management per Cardiology. Added Metoprolol succinate 25mg daily. Appreciate recommendations Suicidal ideation Anxiety/depression Hx of alcoholism, sober x 3 yrs Hx of tobacco abuse, quit x 3 yrs Insomnia Parkinson's disease Continue home fluoxetine, lamotrigine Continue carbidopa-levodopa Continue trazodone q.h.s. Patient has been medically cleared for [facility] evaluation Continue 1798 hold Class III obesity Hx gastric bypass Hx of gastric ulcers Continue multivitamin/iron Increased Pantoprazole to 40mg BID DVT/VTE Prophylaxis: heparin Code Status: Full Code Nutrition: Heart healthy diet PT: Ordered Prognosis: Guarded Disposition: Continue care in PCU. Continue 1798 and sitter. Patient has been medically cleared for [facility] evaluation Riaz Davis MD Internal Medicine Resident PGY-1 Date of Service: June 14, 2024 Billing Provider: UMU SOARES MD, LEONARDO LUIS June 14, 2024 10:35
[2024-06-14] MEDS ORDERED: meclizine 12.5mg tablet PO PRN (12:35)
[2024-06-14 14:07] VITALS: BP 106/43; PULSE 60; RESP 15; TEMP 96.8; O2SAT 94
[2024-06-14] MEDS: nitroGLYCERIN 0.4mg SUBLingual tab SL PRN (15:20)
[2024-06-14 18:00] VITALS: BP 155/94; PULSE 106; RESP 18; TEMP 99.5; O2SAT 98
[2024-06-14] MEDS: pantoprazole 40mg Tablet.DR PO SCH (19:36)
[2024-06-14 20:00] VITALS: RESP 16; O2SAT 97
[2024-06-14 22:00] VITALS: BP 144/93; PULSE 101; RESP 16; TEMP 98.1; O2SAT 97
[2024-06-15 05:41] LABS: BASOPHILS % (AUTO) 0.4 % (0-1); EOSINOPHILS # (AUTO) 0.1 X10'3 (0-0.9); EOSINOPHILS % (AUTO) 1.5 % (0-6); HEMATOCRIT 38.3 % (35.0-45.0); HEMOGLOBIN 12.5 g/dl (12.0-16.0); LYMPHOCYTES # (AUTO) 1.9 X10'3 (1.1-4.8); LYMPHOCYTES % (AUTO) 27.1 % (21-51); MEAN CORPUSCULAR HEMOGLOBIN 30.3 PG (27.0-31.0); MEAN CORPUSCULAR HGB CONC 32.7 g/dL (33.0-36.5); MEAN CORPUSCULAR VOLUME 92.7 FL (78-98); MEAN PLATELET VOLUME 7.9 FL (7.4-10.4); MONOCYTES # (AUTO) 0.6 X10'3 (0-0.9); NEUTROPHILS # (AUTO) 4.4 X10'3 (1.8-7.7); PLATELET COUNT 295 X10'3 (140-440); RED BLOOD COUNT 4.13 X10'6 (4.20-5.60); RED CELL DISTRIBUTION WIDTH 14.1 % (11.5-14.5); WHITE BLOOD COUNT 7.1 X10'3 (4.5-11.0)
[2024-06-15 05:50] LABS: ALANINE AMINOTRANSFERASE 18 U/L (12-78); ALBUMIN 3.5 G/DL (3.4-5.0); ALBUMIN/GLOBULIN RATIO 1.3 (1.1-1.5); ALKALINE PHOSPHATASE 167 IU/L (46-116); ANION GAP 8 (8-16); ASPARTATE AMINO TRANSFERASE 28 U/L (10-37); BILIRUBIN,TOTAL 0.4 MG/DL (0.1-1.0); BLOOD UREA NITROGEN 7 MG/DL (7-18); BUN/CREATININE RATIO 9.6 (10.0-20.0); CALCIUM 8.8 MG/DL (8.5-10.1); CHLORIDE 104 MMOL/L (99-107); CREATININE 0.73 MG/DL (0.40-0.90); GLUCOSE 109 MG/DL (70-104); MAGNESIUM 2.2 MG/DL (1.5-2.4); POTASSIUM 4.1 MMOL/L (3.5-5.1); SODIUM 141 MMOL/L (135-145); TOTAL CARBON DIOXIDE 29.1 MMOL/L (24-32); TOTAL PROTEIN 6.2 G/DL (6.4-8.2); eCRCL 71 ML/MIN; eGFR 81 ML/MIN
[2024-06-15 06:00] VITALS: BP 113/44; PULSE 70; RESP 16; TEMP 98; O2SAT 97
[2024-06-15 08:00] VITALS: RESP 16; O2SAT 97
[2024-06-15] MEDS: metoclopramide 5 mg/ml inj IV ONE (09:00)
[2024-06-15 10:00] VITALS: BP 109/48; PULSE 74; RESP 16; TEMP 98.1; O2SAT 97
[2024-06-15] MEDS ORDERED: LOSA50TA64 PO (10:43)
[2024-06-15] MEDS ORDERED: NOR5T PO (10:43)
[2024-06-15] MEDS ORDERED: NITR0.4T51 SL (10:43)
[2024-06-15] MEDS ORDERED: ASPI-1071 PO (10:43)
[2024-06-15] MEDS ORDERED: EMPA10TA PO (10:43)
[2024-06-15] MEDS ORDERED: METO-395 PO (10:43)
[2024-06-15] MEDS ORDERED: PANT40TA54 PO (10:43)
--- NOTE | 2024-06-15 17:30 | DISCHARGE SUMMARY-Residence ---
Discharge Summary Providers to CC Resident Creating Document: LINUS WELCHBELÉNANGEL VA CC: UMU SOARES MD ~ Discharge Summary Admission Diagnosis: acute CHF Hospital Course DATE OF ADMISSION: 06/11/2024 DATE OF DISCHARGE: 06/15/2024 Discharge Diagnosis\Comment: Stable angina CAD s/p stent (2004) Chronic diastolic heart failure HLD HTN Prediabetes Suicidal ideation Anxiety/depression Hx of alcoholism, sober x 3 yrs Hx of tobacco abuse, quit x 3 yrs Insomnia Parkinson's disease Class III obesity Hx gastric bypass Hx of gastric ulcers Operations\Procedures: None Consultants: Dr Smith (cardiology), Mental health Complications: None Condition on DC: Stable New Medications: Amlodipine Besylate (Amlodipine Besylate) 5 Mg Tablet 5 MG PO DAILY for 30 Days, #30 TAB Aspirin (Ecotrin*) 81 Mg Tablet.dr 1 TAB PO DAILY for 30 Days, #30 TAB.SR Empagliflozin (Jardiance) 10 Mg Tablet 10 MG PO DAILY for 30 Days, #30 TAB Losartan Potassium (Losartan Potassium) 50 Mg Tablet 50 MG PO DAILY for 30 Days, #30 TAB Metoprolol Succinate (Metoprolol Succinate) 25 Mg Tab.sr.24h 25 MG PO DAILY for 30 Days, #30 TAB.SR Nitroglycerin SL* (Nitrostat SL*) 0.4 Mg Tablet 0.4 MG SL Q5MIN PRN for chest pain for 30 Days, #30 TAB Pantoprazole Sodium (Pantoprazole Sodium) 40 Mg Tablet.dr 40 MG PO BID for 30 Days, #30 TAB.SR Continued Medications: Carbidopa/Levodopa (Carbidopa-Levodopa 25-100 Tab) 25 Mg-100 Mg Tablet 1 TAB PO TID Ezetimibe (Ezetimibe) 10 Mg Tablet 1 TAB PO DAILY Fluoxetine Hcl (Fluoxetine Hcl) 40 Mg Capsule 80 MG PO DAILY Lamotrigine (Lamotrigine) 200 Mg Tablet 1 TAB PO DAILY for 30 Days, #30 TAB 0 Refills Meclizine HCl (Meclizine HCl) 25 Mg Tablet 1 TAB PO Q8H Simvastatin (Simvastatin) 40 Mg Tablet 1 TAB PO HS Trazodone HCl (Trazodone HCl) 50 Mg Tablet 1 TAB PO HS PRN for sleep Discontinued Medications: Pantoprazole Sodium (PROTONIX tablet) 40 Mg Tablet.dr 1 TAB PO DAILY for 30 Days, TAB Discharge Summary: Patient was admitted with the following HPI: Jodie Locke is a 58-year-old female with a past medical history of CAD s/p cardiac stent (2004), diastolic heart failure, hypertension, hyperlipidemia, class III obesity, gastric bypass (2003) who presented to the ED with chief complaint of progressively worsening exertional shortness of breath x 2 weeks with associated symptoms of dizziness, headache followed by intermittent episode of near-syncope x 2 months. Patient denies loss of consciousness, prior CVA, cardiac arrhythmia, DVT/PE, or GIB. Patient reports productive cough with green sputum but denies chest pain at rest, palpitations, abdominal pain, n/v/d, fever, chills. Given significant past medical history combined with presentation, patient is to be admitted for further workups and treatment. Hospital course: Patient was admitted with diagnosis of stable angina for further workup. Patient underwent stress test on hospital day 2 which did not demonstrate small area of reversible ischemia. Cardiology was consulted and medical management was recommended. Patient was started on aspirin, atorvastatin, and GDMT for heart failure was optimized with metoprolol succinate. Patient remained he hemodynamically stable during hospital course. She did experienced episodes of epigastric pain, nausea, and some nonspecific neurological symptoms including headaches and diplopia. A CT scan of the head ruled out any acute intracranial abnormalities. These symptoms could have been attributed to side effects from her Parkinson's medications, which she states she has been experiencing for several months now. Patient was strongly advised to follow up with her neurologist, as well as Gastroenterology due to her history of gastric bypass. Patient was also follow up with Dr. Smith on an outpatient basis. Patient will be discharged home today. Laboratory Tests Test 06/14/24 04:28 06/15/24 04:54 White Blood Count 5.8 X10'3 7.1 X10'3 Red Blood Count 4.02 X10'6 4.13 X10'6 Hemoglobin 12.2 g/dl 12.5 g/dl Hematocrit 37.0 % 38.3 % Mean Corpuscular Volume 92.1 FL 92.7 FL Mean Corpuscular Hemoglobin 30.4 PG 30.3 PG Mean Corpuscular Hemoglobin Concent 33.0 g/dL 32.7 g/dL Red Cell Distribution Width 13.7 % 14.1 % Platelet Count 275 X10'3 295 X10'3 Mean Platelet Volume 7.6 FL 7.9 FL Neutrophils (%) (Auto) 61.8 % 62.0 % Lymphocytes (%) (Auto) 26.0 % 27.1 % Monocytes (%) (Auto) 10.3 % 9.0 % Eosinophils (%) (Auto) 1.4 % 1.5 % Basophils (%) (Auto) 0.5 % 0.4 % Neutrophils # (Auto) 3.6 X10'3 4.4 X10'3 Lymphocytes # (Auto) 1.5 X10'3 1.9 X10'3 Monocytes # (Auto) 0.6 X10'3 0.6 X10'3 Eosinophils # (Auto) 0.1 X10'3 0.1 X10'3 Basophils # (Auto) 0.0 X10'3 0.0 X10'3 CBC Comment Sodium Level 143 MMOL/L 141 MMOL/L Potassium Level 4.2 MMOL/L 4.1 MMOL/L Chloride Level 105 MMOL/L 104 MMOL/L Carbon Dioxide Level 28.9 MMOL/L 29.1 MMOL/L Anion Gap 9 8 Blood Urea Nitrogen 9 MG/DL 7 MG/DL Creatinine 0.69 MG/DL 0.73 MG/DL Estimated GFR/1.73 m2 87 ML/MIN 81 ML/MIN BUN/Creatinine Ratio 13.0 9.6 Glucose Level 124 MG/DL 109 MG/DL Calcium Level 8.8 MG/DL 8.8 MG/DL Magnesium Level 1.9 MG/DL 2.2 MG/DL Total Bilirubin 0.4 MG/DL 0.4 MG/DL Aspartate Amino Transf (AST/SGOT) 22 U/L 28 U/L Alanine Aminotransferase (ALT/SGPT) 29 U/L 18 U/L Alkaline Phosphatase 163 IU/L 167 IU/L Total Protein 5.9 G/DL 6.2 G/DL Albumin 3.4 G/DL 3.5 G/DL Globulin 2.5 G/DL 2.7 G/DL Albumin/Globulin Ratio 1.4 1.3 Chemistry Comments Imaging: Lexiscan: 1. Small size, mild intensity reversible perfusion defect in the distal anterior wall favored ischemic. 2. Overall gated left ventricular systolic function was normal with calculated LVEF of 74 % at stress. 3. No left ventricular dilatation. Carotid ultrasound: 1. No evidence of hemodynamically significant stenosis within the bilateral carotid arterial systems. 2. Antegrade flow within bilateral vertebral arteries. Echocardiogram: Normal LV size and wall thickness. Overall systolic function is normal. LVEF is 65-70%. RV size and function appear normal. Left atrium is mildly dilated. Probably trileaflet AV is not well visualized but appears grossly normal without stenosis or insufficiency. Mild MV annular calcification without stenosis. Trace regurgitation. TV appears structurally normal with trace regurgitation. Trivial circumferential pericardial effusion and prominent epicardial fat pad. No evidence of hemodynamic compromise. Head CT: No acute intracranial pathology. Bifrontal cortical atrophy. Chest CT: 1. No signs of malignancy or acute cardiopulmonary pathology. 2. Signs of chronic hypertensive atherosclerotic cardiovascular disease. Discharge physical exam: Vital Signs Date Time Temp Pulse Resp B/P (MAP) Pulse Ox O2 Delivery O2 Flow Rate FiO2 06/15/24 10:00 98.1 74 16 109/48 (68) 97 Room Air 06/14/24 08:00 0.0 General: Obese habitus, awake, alert oriented to place, time, and person HEENT: No pallor present, no icterus, moist mucous membranes Neck: No masses and tenderness Resp: Unlabored. Lungs clear to auscultation bilaterally. Heart: Regular Rate and rhythm, normal S1 and S2 without murmur, rub or gallop Abdomen: Soft and non tender no organomegaly, no guarding and rigidity, bowel sounds present Neuro: No weakness in the upper and lower limb muscles, power of the muscles 5/5 bilateral upper and lower muscles, knee reflex present bilaterally. Cranial nerves intact Extremities: No cyanosis,clubbing or edema Skin: Warm and Dry. No lesions Patient will be discharged with the following recommendations: We added some medications to help your heart, please take as prescribed Please follow up with your PCP within one week as you will need refills. Please discuss referral for gastroenterology, neurology, psychiatry, and cardiology We will re-establish your home health Please return to the ED if you experience any increasing chest pain, shortness of breath, palpitations, lightheadedness or any other concerning symptoms *Problems/Diagnosis: (1) Stable angina Status: Acute (2) CAD (coronary artery disease) Status: Acute Total Time Spent on D/C: > 30 Minutes Date of Service: June 15, 2024 Billing Provider: UMU SOARES MD, LEONARDO LUIS June 15, 2024 17:15
== END 2024-06-15 12:00 | disposition home health service (06) | DRG 303 ==
LOC: ER 12:23 → ED HOLD 14:27 → ORTHO 4S 15:35
PROVIDERS: ADMIT Nurse Practitioner Family; ATTEND Nurse Practitioner Family
PROC: 4A02XM4 Measurement of Cardiac Total Activity, External Approach (ICD-10-PCS; principal; 2024-06-12)
PROC: 3E033HZ Introduction of Radioactive Substance into Peripheral Vein, Percutaneous Approach (ICD-10-PCS; 2024-06-12)
DX: I25.118 Atherosclerotic heart disease of native coronary artery with other forms of angina pectoris (principal); I50.32 Chronic diastolic (congestive) heart failure; R45.851 Suicidal ideations; Z68.42 Body mass index [BMI] 45.0-49.9, adult; E66.813 Obesity, class 3; I11.0 Hypertensive heart disease with heart failure; E78.00 Pure hypercholesterolemia, unspecified; F41.9 Anxiety disorder, unspecified; G47.00 Insomnia, unspecified; R73.03 Prediabetes; G20.A1 Parkinson's disease without dyskinesia, without mention of fluctuations; F32.A Depression, unspecified; Z87.891 Personal history of nicotine dependence; Z88.6 Allergy status to analgesic agent; Z88.8 Allergy status to other drugs, medicaments and biological substances; Z88.0 Allergy status to penicillin; Z98.84 Bariatric surgery status; Z95.5 Presence of coronary angioplasty implant and graft
CPT/HCPCS: 36415; 70450; 71045; 71250; 78452; 80048; 80053; 80061; 80076; 83036; 83605; 83735; 83880; 84145; 84484; 85025; 85379; 85610; 86704; 86705; 87040; 87081; 87340; 93005; 93017; 93306; 96372; 97161; 97530; 99285; A9500; G0378; J1644; J2405; J2765; J2785

== ENCOUNTER 2024-10-27 11:48 | Emergency (ER) | payer MEDICARE, MEDICAID ==
[~2024-10-27] VITALS: Ht 162.6 cm; Wt 120.0 kg
[~2024-10-27 11:48] MED LIST changes: -AMLO1CAP10 PO; +ASPI-1071 PO; +EMPA10TA PO; -LAMO100T PO; +LAMO200T10 PO; +LOSA50TA64 PO; +METO-395 PO; +NITR0.4T51 SL; +NOR5T PO; -PANT-47 PO; +PANT40TA54 PO
[2024-10-27 11:54] VITALS: TEMP 98.8
--- NOTE | 2024-10-27 12:49 | RADIOLOGY REPORT ---
CLINICAL HISTORY: chest pain TECHNIQUE: Single view of the chest was obtained. COMPARISON: CT CT CHEST on DOS: 06/11/24, DI CHEST,SINGLE VIEW on DOS: 06/11/24, CHEST,SINGLE VIEW on DOS: 12/07/21 FINDINGS: The heart size and pulmonary vasculature are normal. The lungs are clear. IMPRESSION: NO ACUTE CARDIOPULMONARY PROCESS.
[2024-10-27 13:07] LABS: MEAN PLATELET VOLUME 8.2 FL (7.4-10.4); RED CELL DISTRIBUTION WIDTH 13.8 % (11.5-14.5)
[2024-10-27 13:18] LABS: CREATININE 0.88 MG/DL (0.40-0.90); TOTAL CARBON DIOXIDE 25.4 MMOL/L (24-32); eCRCL 58 ML/MIN; eGFR 65 ML/MIN
[2024-10-27 13:42] VITALS: BP 119/64; PULSE 68; RESP 19; O2SAT 98
--- NOTE | 2024-10-27 13:46 | Physician Documentation ---
History of Present Illness ~ Chief Complaint: Chest Wall Pain Stated Complaint: CHEST WALL PAIN Time Seen by MD: 12:10 Primary Medical Doctor: Felix Zayas MD HPI 59 year old female with L sternal chest pressure/pain. Patient normally takes a nitroglycerin but could not find her medication supply. Denies fever, cough, shortness of breath, N/V/D. Her pain has now resolved and she is asymptomatic. Medication Reconciliation Allergies: Coded Allergies: [place] And Derivatives (Verified Allergy, Unknown, 10/27/24) Penicillins (Verified Allergy, Unknown, RASH, HIVES, 10/27/24) ibuprofen (Verified Allergy, Unknown, 10/27/24) aspirin (Verified Adverse Reaction, Severe, GI Bleed, 10/27/24) no asa post gastric bypass prednisone (Verified Adverse Reaction, Intermediate, 10/27/24) Scheduled Amlodipine Besylate (Amlodipine Besylate), 5 MG PO DAILY Aspirin (Ecotrin*), 1 TAB PO DAILY Carbidopa/Levodopa (Carbidopa-Levodopa 25-100 Tab), 1 TAB PO TID, (Reported) Empagliflozin (Jardiance), 10 MG PO DAILY Ezetimibe (Ezetimibe), 1 TAB PO DAILY, (Reported) Fluoxetine Hcl (Fluoxetine Hcl), 80 MG PO DAILY, (Reported) Lamotrigine (Lamotrigine), 1 TAB PO DAILY, (Reported) Losartan Potassium (Losartan Potassium), 50 MG PO DAILY Meclizine HCl (Meclizine HCl), 1 TAB PO Q8H, (Reported) Metoprolol Succinate (Metoprolol Succinate), 25 MG PO DAILY Pantoprazole Sodium (Pantoprazole Sodium), 40 MG PO BID Simvastatin (Simvastatin), 1 TAB PO HS, (Reported) Scheduled PRN Nitroglycerin SL* (Nitrostat SL*), 0.4 MG SL Q5MIN PRN for chest pain Trazodone HCl (Trazodone HCl), 1 TAB PO HS PRN for sleep, (Reported) Past Medical History Past Medical History: Angina, Coronary Artery Disease, High Cholesterol, Hypertension, GI Bleed, Anemia, Chronic Pain, Chronic Back Pain, Extremity Fracture, Anxiety, Depression Past Surgical History: angioplasty, cholecystectomy, , gastric bypass, orthopedic surgeries Alcohol Use: Occasionally Drug Use: none Lives with: S/O Lives In: Home Occupation: disabled Review of Systems All Other Systems at this time: Reviewed and Negative Physical Exam Vital Signs: RN Vital Signs have been reviewed: Yes, Temperature: 98.8, Source: Oral, Heart Rate: 67, Respiratory Rate: 14, BP: 125/67, Pulse Oximetry: 96, Weight: 120.000 Oxygen Flow Rate: 0 Physical Exam HEENT: PERRL, moist oral mucosa, EOMI Pulmonary: No respiratory distress Cardiac: RRR, no murmur, rub or gallop MSK: no deformity Skin: w/d/i, no rash Neuro: alert, nonfocal Psych: normal affect Progress Results/Orders Results/Orders Orders - JORGE CARRILLO MD Stat Ekg (10/27/24 ) Chest,Single View (10/27/24 12:18) Completed Orders - JORGE CARRILLO MD Chest,Single View (10/27/24 12:18) Cbc/Diff (10/27/24 12:31) CMP (10/27/24 12:31) Hs Troponin I W Calculations (10/27/24 12:31) Vital Signs 10/27/24 10/27/24 10/27/24 10/27/24 11:54 12:15 12:18 12:56 Temp 98.8 Pulse 75 72 67 Resp 16 14 14 B/P (MAP) 140/60 136/72 (93) 125/67 (86) Pulse Ox 95 96 96 O2 Flow Rate 0 0 0 Laboratory Tests Test 10/27/24 12:56 White Blood Count 9.6 Red Blood Count 4.27 Hemoglobin 12.3 Hematocrit 38.7 Mean Corpuscular Volume 90.6 Mean Corpuscular Hemoglobin 28.9 Mean Corpuscular Hemoglobin Concent 31.9 L Red Cell Distribution Width 13.8 Platelet Count 346 Mean Platelet Volume 8.2 Neutrophils (%) (Auto) 69.0 Lymphocytes (%) (Auto) 22.0 Monocytes (%) (Auto) 7.8 Eosinophils (%) (Auto) 0.6 Basophils (%) (Auto) 0.6 Neutrophils # (Auto) 6.6 Lymphocytes # (Auto) 2.1 Monocytes # (Auto) 0.7 Eosinophils # (Auto) 0.1 Basophils # (Auto) 0.1 CBC Comment Sodium Level 144 Potassium Level 4.1 Chloride Level 109 H Carbon Dioxide Level 25.4 Anion Gap 10 Blood Urea Nitrogen 14 Creatinine 0.88 Estimated GFR/1.73 m2 65 BUN/Creatinine Ratio 15.9 Glucose Level 91 Calcium Level 8.8 Total Bilirubin 0.2 Aspartate Amino Transf (AST/SGOT) 28 Alanine Aminotransferase (ALT/SGPT) 32 Alkaline Phosphatase 133 H Troponin I High Sensitivity 6 Total Protein 6.1 L Albumin 3.3 L Globulin 2.8 Albumin/Globulin Ratio 1.2 Chemistry Comments EKG/XRAY/CT/US/VASC/MRI EKG : Indication: chest pain EKG Rate: 75 EKG: NSR EKG Blocks: none Additional Comment my interpretation: NSR at rate of 75/minute, no STEMI criteria, no dysrhythmia Medical Decision Making Findings 59 year old female with likely angina given her cardiac history and medication. Asymptomatic and stable. EKG/CXR unremarkable as well as laboratory studies. CXr interpreted by me demonstrated normal contours, no PTX or PNA, no acute findings. Remained asymptomatic on reevaluation and wished to leave. Discharged with return precautions. Differential Dx:Considerations: Include: angina, myocardial infarction, pericarditis, pneumonia, pneumothorax, pulmonary embolus Departure Disposition: 01 HOME / SELF CARE / HOMELESS Impression: Primary Impression: Stable angina Condition: Stable Discharge Instructions: Angina Referrals: NO PRIMARY CARE PROVIDER (PCP) Education Educated: Patient Educated regarding: diagnosis, treatment, prognosis, need for follow up Signature Scribe Signature: . Attestation: . JORGE CARRILLO MD Oct 27, 2024 13:46
--- NOTE | 2024-10-27 15:25 | ELECTROCARDIOGRAPH REPORT ---
[facility] Test Date: 2024-10-27 Test Time: 11:55:03 Pat Name: ANSLEY RODRÍGUEZ Department: EMERGENCY ROOM Room: Gender: F Colorist Dyer: J[birth year] : 1965 Requested By: JORGE CARRILLO Order Number: [id number] Reading MD: Measurements Intervals [place] Rate: 75 P: -7 GA: 187 QRS: 57 QRSD: 115 T: 53 QT: 434 QTc: 485 Interpretive Statements Sinus rhythm Nonspecific intraventricular conduction delay Abnormal inferior Q waves Borderline T abnormalities, anterior leads Please click the below link to view image of tracing.
== END 2024-10-27 13:58 | disposition home or self-care (01) ==
LOC: ER 11:48
DX: I20.89 Other forms of angina pectoris (principal); I10 Essential (primary) hypertension; G89.29 Other chronic pain; E78.00 Pure hypercholesterolemia, unspecified; F41.9 Anxiety disorder, unspecified; F32.A Depression, unspecified; Z88.0 Allergy status to penicillin; Z88.6 Allergy status to analgesic agent; Z88.8 Allergy status to other drugs, medicaments and biological substances; Z90.49 Acquired absence of other specified parts of digestive tract; Z79.899 Other long term (current) drug therapy; Z72.89 Other problems related to lifestyle
CPT/HCPCS: 36415; 71045; 80053; 84484; 85025; 93005; 99285

== ENCOUNTER 2024-12-08 02:58 | Emergency (ER) | payer MEDICARE, MEDICAID ==
[~2024-12-08] VITALS: Ht 162.6 cm; Wt 114.6 kg
[~2024-12-08 02:58] MED LIST changes: -EZET10TA48 PO; +EZET10TA80 PO
[2024-12-08 03:08] VITALS: BP 140/86; PULSE 101; RESP 16; TEMP 99.1; O2SAT 96
[2024-12-08 03:44] LABS: MEAN PLATELET VOLUME 8.0 FL (7.4-10.4); RED CELL DISTRIBUTION WIDTH 14.6 % (11.5-14.5)
[2024-12-08 03:59] LABS: CREATININE 0.70 MG/DL (0.40-0.90); TOTAL CARBON DIOXIDE 23.8 MMOL/L (24-32); eCRCL 73 ML/MIN; eGFR 85 ML/MIN
== END 2024-12-08 05:52 | disposition left against medical advice (07) ==
LOC: ER 02:59
DX: R10.11 Right upper quadrant pain (principal); R10.12 Left upper quadrant pain; Z88.8 Allergy status to other drugs, medicaments and biological substances; Z53.21 Procedure and treatment not carried out due to patient leaving prior to being seen by health care provider
CPT/HCPCS: 36415; 80053; 83690; 85025; 99281